=== PATIENT | female | born 1990 | race African-American/Black ===

== ENCOUNTER 2016-12-30 12:03 | Emergency (ER) | payer MEDICAID ==
--- NOTE | 2016-12-30 12:11 | ER Document Report ---
ED Medical Screen (RME) - General Chief Complaint: Nausea/Vomiting Stated Complaint: NAUSEA Mode of Arrival: Ambulatory Information source: Patient Notes: Patient presents emergency department with lower abdominal pain with vomiting for the past week. She denies fever or diarrhea. Reports last menstrual period was 5 months ago but reports she's irregular. She was nontoxic looking. I have greeted and performed a rapid initial assessment of this patient. A comprehensive ED assessment and evaluation of the patient, analysis of test results and completion of the medical decision making process will be conducted by additional ED providers. TRAVEL OUTSIDE OF THE [place] IN LAST 30 DAYS: No - Related Data Allergies/Adverse Reactions: No Known Allergies Allergy (Verified 12/30/16 12:07) Past Medical History Pulmonary Medical History: Reports: Hx Asthma - bronchitis, Hx Bronchitis, Hx Pneumonia Malignancy Medical History: Reports: Hx Lymphoma - POSSIBLE, HAS NOT FOLLOWED UP ADVISED. Psychiatric Medical History: Denies: Hx Depression Infectious Medical History: Reports: Hx HIV - POSITIVE HIV TEST ON LAST ADMISSION TO [facility], [facility] - Immunizations Immunizations up to date: No Hx Diphtheria, Pertussis, Tetanus Vaccination: Yes
[2016-12-30 12:37] LABS: APPEARANCE,URINE CLOUDY; BILIRUBIN,URINE NEGATIVE (NEGATIVE); CALCIUM OXALATE CRYSTALS,URINE FEW /HPF; GLUCOSE, URINE NEGATIVE (NEGATIVE); KETONES,URINE NEGATIVE (NEGATIVE); LEUKOCYTE ESTERASE,URINE LARGE (NEGATIVE); NITRITE,URINE NEGATIVE (NEGATIVE); PROTEIN,URINE NEGATIVE (NEGATIVE); URINE SPECIFIC GRAVITY 1.019; UROBILINOGEN,URINE NEGATIVE mg/dL (<2.0)
[2016-12-30 12:39] LABS: ABSOLUTE EOSINOPHILS # (AUTO) 0.8 10^3/uL (0.0-0.6); ABSOLUTE LYMPHOCYTES (AUTO) 2.2 10^3/uL (0.5-4.7); ABSOLUTE MONOCYTES (AUTO) 0.2 10^3/uL (0.1-1.4); ABSOLUTE NEUT (AUTO) 5.5 10^3/uL (1.7-8.2); BASOPHILS % (AUTO) 0.5 % (0-2); EOSINOPHILS % (AUTO) 8.7 % (0-6); HEMATOCRIT 38.9 % (36.0-47.0); HEMOGLOBIN 13.2 g/dL (12.0-15.5); HGB HCT DIFFERENCE 0.7; LYMPHOCYTES % (AUTO) 25.2 % (13-45); MEAN CORPUSCULAR HEMOGLOBIN 28.8 pg (27.0-33.4); MEAN CORPUSCULAR VOLUME 85 fl (80-97); MONOCYTES % (AUTO) 2.7 % (3-13); RED BLOOD COUNT 4.59 10^6/uL (3.72-5.28); RED CELL DISTRIBUTION WIDTH 13.3 % (11.5-14.0); SEGMENTED NEUTROPHILS % (AUTO) 62.9 % (42-78); WHITE BLOOD COUNT 8.7 10^3/uL (4.0-10.5)
--- NOTE | 2016-12-30 12:40 | ER Document Report ---
ED GI/ - General Chief Complaint: Nausea/Vomiting Stated Complaint: NAUSEA Mode of Arrival: Ambulatory Notes: Patient is a 26-year-old female presents emergency Department complaining of suprapubic abdominal pain and vomiting for one week. Patient states that this pain is located in the suprapubic area localized nonradiating occasional but hurts worse to palpation. Pyuria, hematuria. Last menstrual period was 2 months ago she states she is irregular. She denies being on control. She is currently sexually active. She also has associated vomiting. She denies any hematemesis or hematochezia. States she is not throwing up every day. Denies any fever, chills, diarrhea, constipation. Last bowel movement was this morning normal Past medical history significant for asthma. Denies any history or family history significant for uterine fibroids, endometriosis, ovarian cyst, ectopic Past surgical history significant for diagnostic bronchoscopy for lymphadenopathy Social history significant for social tobacco use, denies alcohol or drug use Primary care is [facility] TRAVEL OUTSIDE OF THE [place] IN LAST 30 DAYS: No - Related Data Allergies/Adverse Reactions: No Known Allergies Allergy (Verified 12/30/16 12:07) Past Medical History - General Information source: Patient - Social History Smoking Status: Never Smoker Chew tobacco use (# tins/day): No Frequency of alcohol use: None Drug Abuse: None Family History: Reviewed & Not Pertinent, Other - Mother committed suicide, no history of granulomatous lung disease in the family Patient has suicidal ideation: No Patient has homicidal ideation: No Pulmonary Medical History: Reports: Hx Asthma - bronchitis, Hx Bronchitis, Hx Pneumonia Renal/ Medical History: Denies: Hx Peritoneal Dialysis Malignancy Medical History: Reports: Hx Lymphoma - POSSIBLE, HAS NOT FOLLOWED UP ADVISED. Psychiatric Medical History: Denies: Hx Depression Infectious Medical History: Reports: Hx HIV - POSITIVE HIV TEST ON LAST ADMISSION TO [facility] - Immunizations Immunizations up to date: No Hx Diphtheria, Pertussis, Tetanus Vaccination: Yes Hx Pneumococcal Vaccination: 10/20/14 Review of Systems - Review of Systems Constitutional: No symptoms reported EENT: No symptoms reported Cardiovascular: No symptoms reported Respiratory: No symptoms reported Gastrointestinal: See HPI Genitourinary: See HPI Female Genitourinary: See HPI Musculoskeletal: No symptoms reported Skin: No symptoms reported Hematologic/Lymphatic: No symptoms reported Neurological/Psychological: No symptoms reported Physical Exam - Vital signs Vitals: Temp Pulse Resp BP Pulse Ox 98.4 F 92 16 134/85 H 98 12/30/16 12:07 12/30/16 12:07 12/30/16 12:07 12/30/16 12:07 12/30/16 12:07 - Notes Notes: PHYSICAL EXAM GENERAL: Alert, interacts well. HEAD: Normocephalic, atraumatic. EYES: Pupils equal, round, and reactive to light. Extraocular movements intact. ENT: Oral mucosa moist, tongue midline. NECK: Full range of motion. Supple. Trachea midline. LUNGS: Clear to auscultation bilaterally, no wheezes, rales, or rhonchi. No respiratory distress. HEART: Regular rate and rhythm. No murmurs, gallops, or rubs. ABDOMEN: Soft, nondistended, nontender. No guarding, rebound, or rigidity.. Bowel sounds present in all 4 quadrants. EXTREMITIES: Moves all 4 extremities spontaneously. No edema, radial and dorsalis pedis pulses 2/4 bilaterally. No cyanosis. NEUROLOGICAL: Alert and oriented x4. Normal speech. PSYCH: Normal affect, normal mood. SKIN: Warm, dry, normal turgor. No rashes or lesions noted. Course - Re-evaluation Re-evalutation: 12/30/16 15:34 Patient is a 26 year old female who presents with suprapubic abdominal pain, and intermittent vomiting. UA (+) for and UTI. I have consulted supervising physician Dr. Baron Spring who recommended TVUS. Patient sent for TVUS to evaluate for IUP and establish age. TVUS showed living IUP 8 weeks ALEXA 08/10/17. Small subchorionic hemorrhage 1x1cm , small simple cyst on right ovary. D/c home with PO antibiotcs and instruction to f/u with health department Per [facility] protocol and guidelines, this case was discussed with supervising physician Dr. Baron Spring prior to discharge - Vital Signs Vital signs: Temp Pulse Resp BP Pulse Ox 98.4 F 92 16 134/85 H 98 12/30/16 12:07 12/30/16 12:07 12/30/16 12:07 12/30/16 12:07 12/30/16 12:07 - Laboratory Result Diagrams: 12/30/16 12:15 12/30/16 12:15 Laboratory results interpreted by me: 12/30/16 12/30/16 12/30/16 12:15 12:15 12:15 Monocytes % 2.7 L Eosinophils % 8.7 H Absolute Eosinophils 0.8 H Glucose 120 H Serum HCG, Qual POSITIVE H Beta HCG, Quant Ur Leukocyte Esterase 12/30/16 12/30/16 12:15 12:20 Monocytes % Eosinophils % Absolute Eosinophils Glucose Serum HCG, Qual Beta HCG, Quant [id number] H Ur Leukocyte Esterase LARGE H - Diagnostic Test Radiology reviewed: Reports reviewed Discharge - Discharge Clinical Impression: , UTI (urinary tract infection) Condition: Good Disposition: HOME, SELF-CARE Instructions: Nitrofurantoin ([facility]) Additional Instructions: You are . care is best started as early in as possible. If you're unsure about continuing this , you should discuss this with your physician or with esl tutor at [facility]. You should take only medications approved by your physician. Acetaminophen can safely be taken for minor pains. As a rule, medication for chronic conditions such as asthma or seizures can safely be continued. You should discuss with the physician every medicine you take. Any regular exercise program can be continued. Talk to your physician, however, before engaging in competitive or demanding sports. Alcohol, smoking, and "street drugs" are dangerous to your baby. Cocaine is especially dangerous. Don't use any illicit drugs! URINARY TRACT INFECTION: Your evaluation indicates that you have a urinary tract infection. This is due to germs growing in the bladder. This is a common problem. This infection usually responds quickly to antibiotics. Your antibiotic should be taken exactly as prescribed. Drink plenty of fluids -- three to four quarts a day. Occasionally, a bladder anesthetic will be prescribed to help stop the feeling of urgency until the antibiotic has a chance to clear the infection. This may cause your urine to be dark orange. Certain urine infections require a culture. If the doctor obtained a culture, the results will be back in two days. You should call to see if a change in treatment is needed. A repeat urinalysis after you finish treatment is often recommended. The physician will let you know if further testing is required. Call the doctor if you develop fever, chills, flank pain, inability to urinate, or blood in the urine. ANTIBIOTIC THERAPY: You have been given an antibiotic prescription. It's important that you take all the medication, unless instructed otherwise by your physician. Failure to complete the entire course can result in relapse of your condition. Common side effects of antibiotics include nausea, intestinal cramping, or diarrhea. Women may develop vaginal yeast infections, and babies can get yeast (thrush) in the mouth following the use of antibiotics. Contact your physician if you develop significant side effects from this medication. Allergy to this antibiotic can result in hives, wheezing, faintness, or itching. If symptoms of allergy occur, stop the medication and call the doctor. NITROFURANTOIN (MACRODANTIN, MACROBID): You have received a prescription for nitrofurantoin (Macrodantin). This antibiotic is used for urinary tract infections. Women who are or nursing should notify the physician before taking this medicine. If you have ever had a problem caused by this medication in the past, be sure the physician is aware of it. Common side effects of this medicine include nausea, vomiting, or decreased appetite. Notify your physician if these side effects become severe. Immediately stop this medicine and call the physician if you develop cough , shortness of breath, chest pain, weakness, jaundice (yellow color of the skin and whites of the eyes), or a skin rash. FOLLOW-UP CARE: If you have been referred to a physician for follow-up care, call the physician s office for an appointment as you were instructed or within the next two days. If you experience worsening or a significant change in your symptoms, notify the physician immediately or return to the Emergency Department at any time for re-evaluation. Prescriptions: Nitrofurantoin/Nitrofuran Mac [Macrobid 100 mg Capsule] 1 tab PO BID #20 capsule Forms: Elevated Blood Pressure, Smoking Cessation Education Referrals: ABBEY PUGA MD [Primary Care Provider] - Follow up as needed
[2016-12-30 12:57] LABS: ALANINE AMINOTRANSFERASE 18 U/L (9-52); ALBUMIN 3.9 g/dL (3.5-5.0); ALKALINE PHOSPHATASE 63 U/L (38-126); ANION GAP 11 (5-19); ASPARTATE AMINO TRANSFERASE 18 U/L (14-36); BILIRUBIN,TOTAL 0.5 mg/dL (0.2-1.3); BLOOD UREA NITROGEN 7 mg/dL (7-20); CALCIUM 9.8 mg/dL (8.4-10.2); CARBON DIOXIDE 23 mmol/L (22-30); CHLORIDE 104 mmol/L (98-107); CREATININE RESULT 0.55 mg/dL (0.52-1.25); GLUCOSE 120 mg/dL (75-110); POTASSIUM 3.8 mmol/L (3.6-5.0); TOTAL PROTEIN 6.8 g/dL (6.3-8.2)
[2016-12-30 16:40] VITALS: BP 128/69
== END 2016-12-30 16:25 | disposition home or self-care (01) ==
LOC: ER 12:03
DX: O23.41 Unspecified infection of urinary tract in pregnancy, first trimester (principal); R10.30 Lower abdominal pain, unspecified; Z3A.08 8 weeks gestation of pregnancy; J45.909 Unspecified asthma, uncomplicated; Z21 Asymptomatic human immunodeficiency virus [HIV] infection status
CPT/HCPCS: 36415; 76817; 80053; 81001; 84702; 84703; 85025; 93976; 99284

== ENCOUNTER 2017-02-12 16:34 | Emergency (ER) | payer MEDICAID ==
[2017-02-12] MEDS ORDERED: ONDANSETRON 4 MG TAB.RAPDIS PO ONE (17:22)
--- NOTE | 2017-02-12 17:25 | ER Document Report ---
ED Medical Screen (RME) - General Chief Complaint: Abdominal Pain Stated Complaint: STOMACH PAIN Mode of Arrival: Ambulatory Information source: Patient Notes: This is a 26-year-old female at 14+3 weeks gestation who presents with lower abdominal pain worse on the right. She states that the pain began on Friday which was 3 days ago and has been associated with vomiting. She has been having difficulty tolerating by mouth. She did have breakfast this morning which was grits. She denies any fevers or chills. No dysuria. Of note she was seen here 6 weeks ago and diagnosed with an 8 week intrauterine and ultrasound showed a small subchorionic bleed. She denies any vaginal bleeding. She has not initiated her care yet. She states her right lower quadrant pain is worse with movement and ambulation. I have greeted and performed a rapid initial assessment of this patient. A comprehensive ED assessment and evaluation of the patient, analysis of test results and completion of the medical decision making process will be conducted by additional ED providers. TRAVEL OUTSIDE OF THE [place] IN LAST 30 DAYS: No - Related Data Allergies/Adverse Reactions: No Known Allergies Allergy (Verified 12/30/16 12:07) Past Medical History Pulmonary Medical History: Reports: Hx Asthma - bronchitis, Hx Bronchitis, Hx Pneumonia Renal/ Medical History: Denies: Hx Peritoneal Dialysis Malignancy Medical History: Reports: Hx Lymphoma - POSSIBLE, HAS NOT FOLLOWED UP ADVISED. Psychiatric Medical History: Denies: Hx Depression Infectious Medical History: Reports: Hx HIV - POSITIVE HIV TEST [facility] - Immunizations Immunizations up to date: No Hx Diphtheria, Pertussis, Tetanus Vaccination: Yes Physical Exam - Vital signs Vitals: Temp Pulse Resp BP Pulse Ox 98.4 F 89 16 105/68 98 02/12/17 16:38 02/12/17 16:38 02/12/17 16:38 02/12/17 16:38 02/12/17 16:38 Course - Vital Signs Vital signs: Temp Pulse Resp BP Pulse Ox 98.4 F 89 16 105/68 98 02/12/17 16:38 02/12/17 16:38 02/12/17 16:38 02/12/17 16:38 02/12/17 16:38 - Laboratory Result Diagrams: 02/12/17 17:25 02/12/17 17:25 Laboratory results interpreted by me: 02/12/17 02/12/17 02/12/17 17:25 17:25 17:25 Eosinophils % 8.8 H Absolute Eosinophils 0.9 H BUN 6 L Ur Leukocyte Esterase LARGE H
[2017-02-12 17:49] LABS: ABSOLUTE BASOPHILS # (AUTO) 0.1 10^3/uL (0.0-0.2); ABSOLUTE EOSINOPHILS # (AUTO) 0.9 10^3/uL (0.0-0.6); ABSOLUTE MONOCYTES (AUTO) 0.6 10^3/uL (0.1-1.4); ABSOLUTE NEUT (AUTO) 5.6 10^3/uL (1.7-8.2); BASOPHILS % (AUTO) 1.3 % (0-2); EOSINOPHILS % (AUTO) 8.8 % (0-6); HEMATOCRIT 37.1 % (36.0-47.0); HGB HCT DIFFERENCE 1.9; LYMPHOCYTES % (AUTO) 28.9 % (13-45); MEAN CORPUSCULAR HEMOGLOBIN 29.1 pg (27.0-33.4); MEAN CORPUSCULAR VOLUME 83 fl (80-97); MONOCYTES % (AUTO) 6.2 % (3-13); RED BLOOD COUNT 4.46 10^6/uL (3.72-5.28); RED CELL DISTRIBUTION WIDTH 12.7 % (11.5-14.0); SEGMENTED NEUTROPHILS % (AUTO) 54.8 % (42-78); WHITE BLOOD COUNT 10.3 10^3/uL (4.0-10.5)
[2017-02-12 17:58] LABS: APPEARANCE,URINE SLIGHTLY-CLOUDY; BILIRUBIN,URINE NEGATIVE (NEGATIVE); GLUCOSE, URINE NEGATIVE (NEGATIVE); KETONES,URINE NEGATIVE (NEGATIVE); LEUKOCYTE ESTERASE,URINE LARGE (NEGATIVE); NITRITE,URINE NEGATIVE (NEGATIVE); PROTEIN,URINE NEGATIVE (NEGATIVE); UROBILINOGEN,URINE NEGATIVE mg/dL (<2.0)
[2017-02-12 18:11] LABS: ALANINE AMINOTRANSFERASE 16 U/L (9-52); ALBUMIN 3.9 g/dL (3.5-5.0); ALKALINE PHOSPHATASE 62 U/L (38-126); ANION GAP 15 (5-19); ASPARTATE AMINO TRANSFERASE 21 U/L (14-36); BILIRUBIN,DIRECT 0.3 mg/dL (0.0-0.4); BILIRUBIN,TOTAL 0.4 mg/dL (0.2-1.3); BLOOD UREA NITROGEN 6 mg/dL (7-20); CALCIUM 9.8 mg/dL (8.4-10.2); CARBON DIOXIDE 22 mmol/L (22-30); CHLORIDE 101 mmol/L (98-107); CREATININE RESULT 0.55 mg/dL (0.52-1.25); GLUCOSE 84 mg/dL (75-110); SODIUM 138.2 mmol/L (137-145)
--- NOTE | 2017-02-12 19:46 | ER Document Report ---
ED GI/ - General Chief Complaint: Abdominal Pain Stated Complaint: STOMACH PAIN Time seen by provider: 19:35 Mode of Arrival: Ambulatory Notes: Patient is a 26-year-old female, at 14 weeks gestation by first trimester ultrasound, that comes emergency department for chief complaint of 3 days of lower abdominal pain, intermittent, she states she notices it more on the right side than the left, she states yesterday she vomited, did not vomit today, she denies fever. She denies dysuria, vaginal discharge or bleeding, injury. She has not had any evaluation other than in the emergency department for this . Patient states that she has not had a bowel movement in 1 week, states this is actually close to normal for her, states she usually has hard bowel movements. Patient reports past medical history of asthma, denies any other medical history. She smokes. TRAVEL OUTSIDE OF THE [place] IN LAST 30 DAYS: No - Related Data Allergies/Adverse Reactions: No Known Allergies Allergy (Verified 12/30/16 12:07) Past Medical History - General Information source: Patient - Social History Smoking Status: Current Every Day Smoker Smoking Education Provided: Yes - <3 min Frequency of alcohol use: None Drug Abuse: None Lives with: Family Family History: Reviewed & Not Pertinent, Other - Mother committed suicide, no history of granulomatous lung disease in the family Pulmonary Medical History: Reports: Hx Asthma - bronchitis, Hx Bronchitis, Hx Pneumonia Renal/ Medical History: Denies: Hx Peritoneal Dialysis Malignancy Medical History: Reports: Hx Lymphoma - POSSIBLE, HAS NOT FOLLOWED UP ADVISED. Psychiatric Medical History: Denies: Hx Depression Surgical Hx: Negative - Immunizations Immunizations up to date: No Hx Diphtheria, Pertussis, Tetanus Vaccination: Yes Hx Pneumococcal Vaccination: 10/20/14 Review of Systems - Review of Systems Constitutional: No symptoms reported EENT: No symptoms reported Cardiovascular: No symptoms reported Respiratory: No symptoms reported Gastrointestinal: See HPI Genitourinary: See HPI Female Genitourinary: See HPI Musculoskeletal: No symptoms reported Skin: No symptoms reported Hematologic/Lymphatic: No symptoms reported Neurological/Psychological: No symptoms reported Physical Exam - Vital signs Vitals: Temp Pulse Resp BP Pulse Ox 98.4 F 89 16 105/68 98 02/12/17 16:38 02/12/17 16:38 02/12/17 16:38 02/12/17 16:38 02/12/17 16:38 Interpretation: Normal - General General appearance: Appears well, Alert In distress: None - Patient alert, calm, very well-appearing - HEENT Head: Normocephalic, Atraumatic Eyes: Normal Conjunctiva: Normal Extraocular movements intact: Yes Eyelashes: Normal Pupils: PERRL Sinus: Normal Nasal: Normal Mouth/Lips: Normal Mucous membranes: Normal Pharynx: Normal Neck: Normal - Respiratory Respiratory status: No respiratory distress. No: Labored, Tachypnea Chest status: Nontender Breath sounds: Other - No tachypnea or signs of respiratory distress, however patient does have a few mild scattered wheezes with otherwise normal and clear lung sounds Chest palpation: Normal - Cardiovascular Rhythm: Regular. No: Tachycardia Heart sounds: Normal auscultation, S1 appreciated, S2 appreciated Murmur: No - Abdominal Inspection: Normal Distension: No distension Bowel sounds: Normal Tenderness: Tender - Mild generalized lower abdominal tenderness bilaterally, no guarding, no rebound tenderness, no distention, otherwise normal abdominal exam Organomegaly: No organomegaly - Genitourinary External exam: Normal Speculum exam: Normal, Cervix closed, Vaginal discharge - Minimal whitish discharge Vaginal bleeding: None - Back Back: Normal, Nontender. No: Tender - Extremities General upper extremity: Normal inspection, Nontender, Normal color, Normal ROM , Normal temperature General lower extremity: Normal inspection, Nontender, Normal color, Normal ROM , Normal temperature, Normal weight bearing. No: Rosaura's sign - Neurological Neuro grossly intact: Yes Cognition: Normal Orientation: AAOx4 [place] Coma Scale Eye Opening: Spontaneous [place] Coma Scale Verbal: Oriented [place] Coma Scale Motor: Obeys Commands Blu Coma Scale Total: 15 Speech: Normal Motor strength normal: LUE, RUE, LLE, RLE Sensory: Normal - Psychological Associated symptoms: Normal affect, Normal mood - Skin Skin Temperature: Warm Skin Moisture: Dry Skin Color: Normal Course - Re-evaluation Re-evalutation: Mild lower abdominal tenderness, not suggestive of acute abdomen. CBC unremarkable, chemistry unremarkable, urinalysis with leukocyte esterase and white blood cells. Pelvic exam is unremarkable. heart tones present. No vaginal bleeding, cervix closed. Patient has not had a bowel movement in one week. Providing stool softeners, Keflex antibiotic for UTI, discussed smoking cessation due to both the harm to her and on the potentially, discussed vitamin use, patient states she has vitamins but she is currently taking. She states she'll start taking them and stop smoking. Discussed follow-up and return precautions, patient states understanding and agreement, significant other states understanding and agreement. - Vital Signs Vital signs: Temp Pulse Resp BP Pulse Ox 97.3 F 88 17 121/74 100 02/12/17 22:05 02/12/17 22:05 02/12/17 22:05 02/12/17 22:05 02/12/17 22:05 - Laboratory Result Diagrams: 02/12/17 17:25 02/12/17 17:25 Laboratory results interpreted by me: 02/12/17 02/12/17 02/12/17 17:25 17:25 17:25 Eosinophils % 8.8 H Absolute Eosinophils 0.9 H BUN 6 L Ur Leukocyte Esterase LARGE H Discharge - Discharge Clinical Impression: Lower abdominal pain Condition: Stable Disposition: HOME, SELF-CARE Additional Instructions: Take the Keflex antibiotic as prescribed for urinary tract infection. I recommend using the magnesium citrate (you may want to try only 1/4 to 1/2 of the bottle initially), and use the Colace in the future if needed intermittently for stool softener to move your bowels and prevent constipation. Take your vitamins, stop smoking. Follow-up with the health department/OBGYN. Return to the emergency department for any concerning or worsening symptoms including fever, bleeding, pain, etc. Prescriptions: Cephalexin Monohydrate [Keflex 500 mg Capsule] 500 mg PO BID #10 capsule Docusate Sodium [Colace 100 mg Capsule] 100 mg PO DAILY #30 capsule Forms: Return to Work
[2017-02-12] MEDS ORDERED: CEPHALEXIN 500 MG CAPSULE PO ONE (21:29)
[2017-02-12] MEDS ORDERED: MAGNESIUM CITRATE 296 ML BOTTLE PO ONE (21:29)
[2017-02-12 22:04] LABS: CHLAM PCR NOT DETECTED (NOT DETECT)
[2017-02-12 22:59] VITALS: BP 121/74
== END 2017-02-12 22:05 | disposition home or self-care (01) ==
LOC: ER 16:34
DX: O16.2 Unspecified maternal hypertension, second trimester (principal); R10.30 Lower abdominal pain, unspecified; O99.332 Smoking (tobacco) complicating pregnancy, second trimester; Z3A.14 14 weeks gestation of pregnancy
CPT/HCPCS: 99284; 36415; 87210; 85025; 80053; 81001; 87491; 87591; J3490; S0119

== ENCOUNTER 2017-05-18 21:55 | Inpatient (IN) | payer MEDICAID ==
[2017-05-18 23:23] LABS: AMNISURE (ROM) NEGATIVE (NEGATIVE)
[2017-05-18] MEDS ORDERED: ALBUTEROL SULFATE 0.083% NEB 2.5 MG/3 ML AMPUL NEB ONE (23:35)
[2017-05-18 23:47] LABS: APPEARANCE,URINE CLOUDY; BILIRUBIN,URINE NEGATIVE (NEGATIVE); GLUCOSE, URINE NEGATIVE (NEGATIVE); KETONES,URINE TRACE mg/dL (NEGATIVE); LEUKOCYTE ESTERASE,URINE MODERATE (NEGATIVE); NITRITE,URINE NEGATIVE (NEGATIVE); PROTEIN,URINE 30 mg/dL (NEGATIVE); URINE SPECIFIC GRAVITY 1.016
[2017-05-19] MEDS ORDERED: RINGERS SOLUTION,LACTATED 1,000 ML IV PRN
[2017-05-19] MEDS ORDERED: CEFAZOLIN 2 GM/D5W RTU 2 GM/50 ML RTUPB IV PRN
[2017-05-19 00:02] LABS: URINE BARBITURATES SCREEN NEGATIVE; URINE METHADONE SCREEN NEGATIVE; URINE OPIATES LOW NEGATIVE; URINE PHENCYCLIDINE SCREEN NEGATIVE
[2017-05-19] MEDS ORDERED: CEFAZOLIN INJ 1 GM VIAL ONE (00:04)
[2017-05-19] MEDS ORDERED: ALBUTEROL SULFATE 0.083% NEB 2.5 MG/3 ML AMPUL NEB ONE (00:12)
[2017-05-19] MEDS ORDERED: CYCLOBENZAPRINE HCL 10 MG TABLET ONE (01:34)
[2017-05-19] MEDS ORDERED: CYCLOBENZAPRINE HCL 10 MG TABLET PO ONE (01:45)
[2017-05-19] MEDS ORDERED: HYDROMORPHONE HCL INJ/PF 2 MG/ML AMPULE ONE ×2 (02:21→08:10)
[2017-05-19 02:28] LABS: ABSOLUTE BASOPHILS # (AUTO) 0.1 10^3/uL (0.0-0.2); ABSOLUTE EOSINOPHILS # (AUTO) 0.2 10^3/uL (0.0-0.6); ABSOLUTE LYMPHOCYTES (AUTO) 1.7 10^3/uL (0.5-4.7); ABSOLUTE MONOCYTES (AUTO) 1.1 10^3/uL (0.1-1.4); ABSOLUTE NEUT (AUTO) 11.6 10^3/uL (1.7-8.2); BASOPHILS % (AUTO) 0.4 % (0-2); EOSINOPHILS % (AUTO) 1.2 % (0-6); HEMATOCRIT 34.6 % (36.0-47.0); HEMOGLOBIN 12.2 g/dL (12.0-15.5); LYMPHOCYTES % (AUTO) 11.4 % (13-45); MEAN CORPUSCULAR HEMOGLOBIN 29.7 pg (27.0-33.4); MEAN CORPUSCULAR HGB CONC 35.1 g/dL (32.0-36.0); MEAN CORPUSCULAR VOLUME 85 fl (80-97); MONOCYTES % (AUTO) 7.3 % (3-13); RED BLOOD COUNT 4.09 10^6/uL (3.72-5.28); RED CELL DISTRIBUTION WIDTH 13.3 % (11.5-14.0); SEGMENTED NEUTROPHILS % (AUTO) 79.7 % (42-78); WHITE BLOOD COUNT 14.6 10^3/uL (4.0-10.5)
--- NOTE | 2017-05-19 03:48 | RADIOLOGY REPORT (SQ) ---
EXAM DESCRIPTION: CTA CHEST COMPLETED DATE/TIME: 05/19/2017 3:12 am REASON FOR STUDY: chest/upper back pain, wheezing COMPARISON: 10.07.16 TECHNIQUE: CT scan of the chest performed using helical scanning technique with dynamic intravenous contrast injection. Images reviewed with lung, soft tissue and bone windows. Reconstructed coronal and sagittal MPR images reviewed. Additional 3 dimensional post-processing performed to develop Maximal Intensity Projection images (IA P). All images stored on PACS. All CT scanners at this facility use dose modulation, iterative reconstruction, and/or weight based d osing when appropriate to reduce radiation dose to as low as reasonably achievable (ALARA). [facility]: Dose Right [facility]: CareDose [facility]: Dose Right [facility]: Teradose 4D [facility]: Fitocracy CONTRAST TYPE AND DOSE: contrast/concentration: Isovue 370.00 mg/ml; Total Contrast Delivered: 80.0 ml; Total Saline Delivered: 110.0 ml RENAL FUNCTION: None required. The patient is less than 50 years old. RADIATION DOSE: Up-to-date CT equipment and radiation dose reduction techniques were employed. CTDIv ol: 26.4 - 32.4 mGy. DLP: 1030 mGy-cm. . LIMITATIONS: None. FINDINGS: LUNGS AND PLEURA: Evolved masslike airspace lesions includes increased soft tissue mass me asuring 3.7 cm and the left upper lobe, 3.9 cm increased soft tissue mass of the right upper lobe, in creased extensive left perihilar and perivascular arm soft tissue mass, and nodular serpiginous enlar gement of the venous system of predominantly bilateral lower lobes. Significantly decreased/absent p reviously described 4.6 cm mass of the right lower lobe as compared to CT from September 2016. AORTA AND GREAT VESSELS: No aneurysm or dissection. HEART: No pericardial effusion. PULMONARY ARTERIES: No gross evidence of pulmonary emboli visualized in the main pulmonary arteries o r the segmental branches ; suboptimal pulmonary arterial enhancement measures 150 Hounsfield units. HILAR AND MEDIASTINAL STRUCTURES: No identified masses or abnormal nodes. HARDWARE: None in the chest. UPPER ABDOMEN: No significant findings. Limited exam. THYROID AND OTHER SOFT TISSUES: No masses. No adenopathy. BONES: No acute or significant finding. 3D MIPS: Confirm above findings. OTHER: No other significant finding. IMPRESSION: Increased pulmonary masses particularly of bilateral upper lobes and left perihilar spac e. Nonspecific nodular enlargement of the pulmonary venous system seen in bilateral lower lobes. In fectious, inflammatory, vascular and neoplastic processes are in the differential diagnosis. Consult ation with pulmonary medicine recommended. TECHNICAL DOCUMENTATION: JOB ID: [id number] Quality ID # [id number]: Final reports with documentation of one or more dose reduction techniques (e.g., Au tomated exposure control, adjustment of the mA and/or kV according to patient size, use of iterative reconstruction technique) 2010 [email or web address]- All Rights Reserved
[2017-05-19] MEDS ORDERED: DEXTROSE 5%-LACTATED RINGERS 1,000 ML IV PRN (05:03)
--- NOTE | 2017-05-19 07:28 | L&D Progress Notes ---
PROGRESS NOTES Datetime Report Generated by CPN: 05/19/2017 07:27 PROGRESS NOTE Impression Other: Transfer summary Plan: Transfer Comment: IUP at 28 wks with pulmonary nodules on CTA. Case d/w Dr Mariya of pulmonary who did bronchoscopy in Sep 2016 on her. Biopsies showed inflammatin and necrotic tissue. Pt did not f/u as recommended. He feels she needs tertiary care eval and tx. Contacted [facility] and Dr Hastings accepts pt in transfer to L and D neg flow room. SIGNATURE SIGNATURE: [id number] Signature: with User ID: [email or web address]
[2017-05-19] MEDS ORDERED: HYDROMORPHONE HCL INJ/PF 2 MG/ML AMPULE IV ONE (08:04)
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
--- NOTE | 2017-05-29 12:27 | TRANSFER SUMMARY E ---
Transfer Summary NAME: ZEB PEACOCK : 1990 AGE: 26Y ADMITTED: 05/19/2017 TRANSFERRED: 05/19/2017 HOSPITAL COURSE: The patient is a 26-year-old G2, P1 who presented at 28+ weeks gestation with chest pain and shortness of breath. She had wheezing on exam and was given an albuterol neb. She underwent chest CTA which showed multiple pulmonary masses. In the past she had bronchoscopy with Dr. Meraz which was nondefinitive. She did not follow up. The decision was made that she was not a good candidate for workup and treatment at [facility] and [facility] was contacted. Dr. Hastings on Labor and Delivery at [facility] accepted her in transfer. During the course of her stay, she did receive 2 g of Ancef for a suspected UTI. There were no other transfers meds given. The testing was reassuring during her hospital course. The patient was simply sent on IV fluids and Dilaudid for pain. DICTATING PHYSICIAN: PRIYANKA NAIK M.D. [id number] PHY#: [id number] ID: [id number] JOB#: [id number] ACCT: [id number] cc:PRIYANKA NAIK M.D. >
== END 2017-05-19 09:48 | disposition short-term general hospital (02) | DRG 781 ==
LOC: EDSTATUS 22:35 → LC 22:37 → LR 05-19 05:04
PROVIDERS: ADMIT Specialist; ATTEND Specialist
DX: O99.513 Diseases of the respiratory system complicating pregnancy, third trimester (principal); R91.8 Other nonspecific abnormal finding of lung field; J45.909 Unspecified asthma, uncomplicated; Z3A.28 28 weeks gestation of pregnancy; R07.89 Other chest pain; O23.43 Unspecified infection of urinary tract in pregnancy, third trimester
CPT/HCPCS: 36415; 71275; 80307; 81001; 84112; 85025; 87086; 94640; J0690; J1170

== ENCOUNTER 2017-06-23 22:49 | Outpatient (CLI) | payer MEDICAID ==
[2017-06-23 23:22] LABS: APPEARANCE,URINE SLIGHTLY-CLOUDY; BILIRUBIN,URINE NEGATIVE (NEGATIVE); GLUCOSE, URINE NEGATIVE (NEGATIVE); KETONES,URINE NEGATIVE (NEGATIVE); LEUKOCYTE ESTERASE,URINE MODERATE (NEGATIVE); NITRITE,URINE NEGATIVE (NEGATIVE); PROTEIN,URINE 100 mg/dL (NEGATIVE); URINE SPECIFIC GRAVITY 1.023; UROBILINOGEN,URINE NEGATIVE mg/dL (<2.0)
[2017-06-23 23:34] LABS: URINE BARBITURATES SCREEN NEGATIVE; URINE METHADONE SCREEN NEGATIVE; URINE OPIATES LOW NEGATIVE; URINE PHENCYCLIDINE SCREEN NEGATIVE
[2017-06-24] MEDS ORDERED: PROMETHAZINE HCL 25 MG TABLET ONE (02:05)
--- NOTE | 2017-06-24 02:28 | RADIOLOGY REPORT (SQ) ---
EXAM DESCRIPTION: U/S OB LIMITED COMPLETED DATE/TIME: 06/24/2017 12:28 am REASON FOR STUDY: R/O PTL: cervical length . The patient is 33 weeks 2 days . COMPARISON: US OB 12/30/2016. TECHNIQUE: Limited transvaginal and transabdominal grayscale ultrasound for evaluation of specific r equested obstetrical parameters. LIMITATIONS: None. FINDINGS: CERVICAL LENGTH: 4.8 cm. Closed. FHR: 132 beats per minute. PRESENTATION: Vertex. IMPRESSION: LIMITED OBSTETRICAL ULTRASOUND WITH MEASURED PARAMETERS DELINEATED ABOVE. Trimester of : Third trimester - 28 weeks to delivery. TECHNICAL DOCUMENTATION: JOB ID: [id number] 2010 [employer] All Rights Reserved
== END 2017-06-24 03:11 | disposition home or self-care (01) ==
LOC: LC 22:49
PROVIDERS: ATTEND Student in an Organized Health Care Education/Training Program
PROC: 4A1HXCZ Monitoring of Products of Conception, Cardiac Rate, External Approach (ICD-10-PCS; principal; 2017-06-23)
DX: O47.03 False labor before 37 completed weeks of gestation, third trimester (principal); Z3A.33 33 weeks gestation of pregnancy
CPT/HCPCS: 59025; 81001; 80307; 76815; J3490

== ENCOUNTER 2018-02-16 09:27 | Emergency (ER) | payer SELFPAY ==
[2018-02-16 10:17] LABS: ABSOLUTE BASOPHILS # (AUTO) 0.1 10^3/uL (0.0-0.2); ABSOLUTE EOSINOPHILS # (AUTO) 0.6 10^3/uL (0.0-0.6); ABSOLUTE LYMPHOCYTES (AUTO) 2.4 10^3/uL (0.5-4.7); ABSOLUTE MONOCYTES (AUTO) 0.2 10^3/uL (0.1-1.4); ABSOLUTE NEUT (AUTO) 3.6 10^3/uL (1.7-8.2); BASOPHILS % (AUTO) 1.1 % (0-2); EOSINOPHILS % (AUTO) 8.3 % (0-6); HEMATOCRIT 39.3 % (36.0-47.0); HEMOGLOBIN 13.4 g/dL (12.0-15.5); LYMPHOCYTES % (AUTO) 35.8 % (13-45); MEAN CORPUSCULAR HEMOGLOBIN 28.7 pg (27.0-33.4); MEAN CORPUSCULAR HGB CONC 34.1 g/dL (32.0-36.0); MEAN CORPUSCULAR VOLUME 84 fl (80-97); MONOCYTES % (AUTO) 2.3 % (3-13); PLATELET COUNT 277 10^3/uL (150-450); RED BLOOD COUNT 4.68 10^6/uL (3.72-5.28); RED CELL DISTRIBUTION WIDTH 13.6 % (11.5-14.0); SEGMENTED NEUTROPHILS % (AUTO) 52.5 % (42-78); TOTAL CELLS COUNTED % (AUTO) 100 %; WHITE BLOOD COUNT 6.8 10^3/uL (4.0-10.5)
[2018-02-16 10:21] LABS: APPEARANCE,URINE CLOUDY; BILIRUBIN,URINE NEGATIVE (NEGATIVE); COLOR,URINE YELLOW; GLUCOSE, URINE NEGATIVE (NEGATIVE); KETONES,URINE NEGATIVE (NEGATIVE); LEUKOCYTE ESTERASE,URINE LARGE (NEGATIVE); NITRITE,URINE NEGATIVE (NEGATIVE); PROTEIN,URINE 30 mg/dL (NEGATIVE); URINE SPECIFIC GRAVITY 1.023; UROBILINOGEN,URINE NEGATIVE mg/dL (<2.0)
--- NOTE | 2018-02-16 10:27 | ER Document Report ---
ED General - General Chief Complaint: Abdominal Pain Stated Complaint: WHEEZING, STOMACH PAIN Time Seen by Provider: 02/16/18 10:07 Mode of Arrival: Ambulatory Information source: Patient Notes: 27-year-old female presents with 2 separate complaints. Patient has a history of asthma notes that since she lost her Medicaid she has not been on any vacations does not have alar. Patient denies any fevers or chills admits to wheezing over the past 3-4 days. Patient also notes that she has had unprotected intercourse believe she may be as having foul-smelling urine, patient also notes that there is some bumps couple weeks ago that since healed. pt admits ot suprapubic pain over the past few days, notes burning on urination TRAVEL OUTSIDE OF THE [place].S. IN LAST 30 DAYS: No - HPI Onset: Other Onset/Duration: Persistent Quality of pain: Burning, Pressure Severity: Mild Pain Level: 1 Associated symptoms: Nonproductive cough, Shortness of breath, Other Exacerbated by: Walking, Coughing, Other - urination Relieved by: Denies Similar symptoms previously: Yes Recently seen / treated by doctor: Yes - Related Data Allergies/Adverse Reactions: No Known Allergies Allergy (Verified 02/16/18 09:41) Past Medical History - Social History Smoking Status: Current Every Day Smoker Cigarette use (# per day): Yes Chew tobacco use (# tins/day): No Smoking Education Provided: No Frequency of alcohol use: None Drug Abuse: None Family History: Reviewed & Not Pertinent, Other - Mother committed suicide, no history of granulomatous lung disease in the family Patient has suicidal ideation: No Patient has homicidal ideation: No Pulmonary Medical History: Reports: Hx Asthma - bronchitis, Hx Bronchitis, Hx Pneumonia Renal/ Medical History: Denies: Hx Peritoneal Dialysis Malignancy Medical History: Reports: Hx Lymphoma - POSSIBLE, HAS NOT FOLLOWED UP ADVISED. Psychiatric Medical History: Denies: Hx Depression Infectious Medical History: Reports: Hx HIV - POSITIVE HIV TEST [facility] - Immunizations Immunizations up to date: No Hx Diphtheria, Pertussis, Tetanus Vaccination: Yes Hx Pneumococcal Vaccination: 10/20/14 Review of Systems - Review of Systems Notes: REVIEW OF SYSTEMS: CONSTITUTIONAL : Denies fever, chills, or sweats. Denies recent illness. EENT: Denies eye, ear, throat, or mouth pain or symptoms. Denies nasal or sinus congestion or discharge. Denies throat, tongue, or mouth swelling or difficulty swallowing. CARDIOVASCULAR: Denies chest pain. Denies palpitations or racing or irregular heart beat. Denies ankle edema. RESPIRATORY: Admits to wheezing GASTROINTESTINAL: Admits to suprapubic GENITOURINARY: Admits to burning on urination FEMALE GENITOURINARY: Denies vaginal bleeding, heavy or abnormal periods, irregular periods. Denies vaginal discharge or odor. MUSCULOSKELETAL: Denies back or neck pain or stiffness. Denies joint pain or swelling. SKIN: Denies rash, lesions or sores. HEMATOLOGIC : Denies easy bruising or bleeding. LYMPHATIC: Denies swollen, enlarged glands. NEUROLOGICAL: Denies confusion or altered mental status. Denies passing out or loss of consciousness. Denies dizziness or lightheadedness. Denies headache. Denies weakness or paralysis or loss of use of either side. Denies problems with gait or speech. Denies sensory loss, numbness, or tingling. Denies seizures. PSYCHIATRIC: Denies anxiety or stress. Denies depression, suicidal ideation, or homicidal ideation. ALL OTHER SYSTEMS REVIEWED AND NEGATIVE. PHYSICAL EXAMINATION: GENERAL: Well-appearing, well-nourished and in no acute distress. HEAD: Atraumatic, normocephalic. EYES: Pupils equal round and reactive to light, extraocular movements intact, conjunctiva are normal. ENT: Nares patent, oropharynx clear without exudates. Moist mucous membranes. NECK: Normal range of motion, supple without lymphadenopathy LUNGS: Breath sounds clear to auscultation bilaterally and equal. No wheezes rales or rhonchi. HEART: Regular rate and rhythm without murmurs ABDOMEN: Soft, nontender, nondistended abdomen. No guarding, no rebound. No masses appreciated. No tenderness upon palpation Female : Pelvic examination performed with [employer]ki in the room, white discharge is noted no cervical tenderness Musculoskeletal: Normal range of motion, no pitting or edema. No cyanosis. NEUROLOGICAL: Cranial nerves grossly intact. Normal speech, normal gait. Normal sensory, motor exams PSYCH: Normal mood, normal affect. SKIN: Warm, Dry, normal turgor, no rashes or lesions noted. Dictation was performed using [employer] voice recognition software Physical Exam - Vital signs Vitals: Temp Pulse Resp BP Pulse Ox 98.3 F 99 18 130/77 H 96 02/16/18 09:35 02/16/18 09:35 02/16/18 09:35 02/16/18 09:35 02/16/18 09:35 REVIEW OF SYSTEMS: CONSTITUTIONAL : Denies fever, chills, or sweats. Denies recent illness. EENT: Denies eye, ear, throat, or mouth pain or symptoms. Denies nasal or sinus congestion or discharge. Denies throat, tongue, or mouth swelling or difficulty swallowing. CARDIOVASCULAR: Denies chest pain. Denies palpitations or racing or irregular heart beat. Denies ankle edema. RESPIRATORY: Admits cough wheezing GASTROINTESTINAL: Admits suprapubic pain GENITOURINARY: Admits to burning on urination FEMALE GENITOURINARY: Denies vaginal bleeding, heavy or abnormal periods, irregular periods. Denies vaginal discharge or odor. MUSCULOSKELETAL: Denies back or neck pain or stiffness. Denies joint pain or swelling. SKIN: Denies rash, lesions or sores. HEMATOLOGIC : Denies easy bruising or bleeding. LYMPHATIC: Denies swollen, enlarged glands. NEUROLOGICAL: Denies confusion or altered mental status. Denies passing out or loss of consciousness. Denies dizziness or lightheadedness. Denies headache. Denies weakness or paralysis or loss of use of either side. Denies problems with gait or speech. Denies sensory loss, numbness, or tingling. Denies seizures. PSYCHIATRIC: Denies anxiety or stress. Denies depression, suicidal ideation, or homicidal ideation. ALL OTHER SYSTEMS REVIEWED AND NEGATIVE. PHYSICAL EXAMINATION: GENERAL: Well-appearing, well-nourished and in no acute distress. HEAD: Atraumatic, normocephalic. EYES: Pupils equal round and reactive to light, extraocular movements intact, conjunctiva are normal. ENT: Nares patent, oropharynx clear without exudates. Moist mucous membranes. NECK: Normal range of motion, supple without lymphadenopathy LUNGS: Breath sounds clear to auscultation bilaterally and equal. No wheezes rales or rhonchi. HEART: Regular rate and rhythm without murmurs ABDOMEN: Soft, nontender, nondistended abdomen. No guarding, no rebound. No masses appreciated. Female : deferred Musculoskeletal: Normal range of motion, no pitting or edema. No cyanosis. NEUROLOGICAL: Cranial nerves grossly intact. Normal speech, normal gait. Normal sensory, motor exams PSYCH: Normal mood, normal affect. SKIN: Warm, Dry, normal turgor, no rashes or lesions noted. Dictation was performed using [employer] voice recognition software Course - Re-evaluation Re-evalutation: 02/16/18 10:30 Lab work pending we will perform pelvic exam explained to her that she must have Pap smear done by COURT ADMINISTRATOR 02/16/18 11:40 Patient's presentation is concerning for a sexually transmitted disease, patient will be given follow-up with the health department for further evaluation and care, Patient will be treated for gonorrhea and chlamydia here Safe sex instructions provided After performing a Medical Screening Examination, I estimate there is LOW risk for ACUTE APPENDICITIS, BOWEL OBSTRUCTION, ACUTE CHOLECYSTITIS, PERFORATED DIVERTICULITIS, INCARCERATED HERNIA, PANCREATITIS, PELVIC INFLAMMATORY DISEASE, PERFORATED ULCER, ECTOPIC , or TUBO-OVARIAN ABSCESS, thus I consider the discharge disposition reasonable. Also, there is no evidence or peritonitis , sepsis, or toxicity. I have reevaluated this patient multiple times and no significant life threatening changes are noted. The patient and I have discussed the diagnosis and risks, and we agree with discharging home with close follow-up with the understanding that symptoms and presentations can change. We also discussed returning to the Emergency Department immediately if new or worsening symptoms occur. We have discussed the symptoms which are most concerning (e.g., bloody stool, fever, changing or worsening pain, vomiting) that necessitate immediate return. - Vital Signs Vital signs: Temp Pulse Resp BP Pulse Ox 98.3 F 99 18 130/77 H 96 02/16/18 09:35 02/16/18 09:35 02/16/18 09:35 02/16/18 09:35 02/16/18 09:35 - Laboratory Result Diagrams: 02/16/18 09:52 02/16/18 09:52 Laboratory results interpreted by me: 02/16/18 02/16/18 02/16/18 09:52 09:52 09:52 Monocytes % 2.3 L Eosinophils % 8.3 H Glucose 117 H Urine Protein 30 H Ur Leukocyte Esterase LARGE H Urine Ascorbic Acid 40 H Discharge - Discharge Clinical Impression: Pelvic pain, Concern about sexually transmitted disease in female without diagnosis Condition: Stable Disposition: HOME, SELF-CARE Prescriptions: Cephalexin Monohydrate [Keflex 500 mg Capsule] 500 mg PO BID 5 Days capsule Referrals: HEALTH DEPT,[facility] [NO LOCAL MD] - Follow up tomorrow
[2018-02-16 10:31] LABS: ALANINE AMINOTRANSFERASE 35 U/L (9-52); ALBUMIN 4.2 g/dL (3.5-5.0); ALKALINE PHOSPHATASE 65 U/L (38-126); ANION GAP 11 (5-19); ASPARTATE AMINO TRANSFERASE 32 U/L (14-36); BILIRUBIN,DIRECT 0.2 mg/dL (0.0-0.4); BILIRUBIN,TOTAL 0.4 mg/dL (0.2-1.3); BLOOD UREA NITROGEN 9 mg/dL (7-20); CALCIUM 9.7 mg/dL (8.4-10.2); CARBON DIOXIDE 28 mmol/L (22-30); CHLORIDE 104 mmol/L (98-107); GLUCOSE 117 mg/dL (75-110); LIPASE 31.9 U/L (23-300); POTASSIUM 3.7 mmol/L (3.6-5.0); SODIUM 142.6 mmol/L (137-145); TOTAL PROTEIN 6.9 g/dL (6.3-8.2)
[2018-02-16 11:12] LABS: BACTERIA (WET MOUNT) 3+ BACTERIA SEEN; RBCS (WET MOUNT) RARE RBCS SEEN; T.VAGINALIS (WET MOUNT) NO TRICHOMONAS SEEN; WBCS (WET MOUNT) 3+ WBCS SEEN; YEAST (WET MOUNT) NO YEAST SEEN
[2018-02-16] MEDS ORDERED: LIDOCAINE 1% INJ-PF (10 MG/ML) 30 ML SDV INFIL ONE (11:20)
[2018-02-16] MEDS ORDERED: AZITHROMYCIN 250 MG TABLET PO ONE (11:20)
[2018-02-16] MEDS ORDERED: CEFTRIAXONE INJ 250 MG VIAL IM ONE (11:20)
[2018-02-16] MEDS ORDERED: ALBUTEROL SULFATE HFA (90 MCG/PUFF) 8 GM MDI (1 MDI/ER DISP) IH PRN (11:47)
[2018-02-16 11:50] LABS: CHLAM PCR DETECTED (NOT DETECT); GON PCR NOT DETECTED (NOT DETECT)
[2018-02-16 12:39] VITALS: BP 115/64
== END 2018-02-16 12:35 | disposition home or self-care (01) ==
LOC: ER 09:27
DX: J45.21 Mild intermittent asthma with (acute) exacerbation (principal); N30.00 Acute cystitis without hematuria; A74.9 Chlamydial infection, unspecified; B20 Human immunodeficiency virus [HIV] disease; R10.2 Pelvic and perineal pain
CPT/HCPCS: 99284; 96372; 36415; 87210; 83690; 85025; 80053; 81001; 87491; 87591; J3490 ×2; J0696

== ENCOUNTER 2018-07-14 21:14 | Emergency (ER) | payer SELFPAY ==
[2018-07-15] MEDS ORDERED: IPRATROPIUM/ALBUTEROL 0.5-2.5 MG/3 ML AMPUL NEB ONE (00:51)
[2018-07-15] MEDS ORDERED: MAGNESIUM SULFATE/D5W 1 GM/100 ML RTUPB IV ONE (00:52)
[2018-07-15] MEDS ORDERED: NORMAL SALINE 500 ML IV ONE (00:52)
[2018-07-15 02:22] LABS: BACTERIA (WET MOUNT) 3+ BACTERIA SEEN; RBCS (WET MOUNT) FEW RBCS SEEN; T.VAGINALIS (WET MOUNT) NO TRICHOMONAS SEEN; WBCS (WET MOUNT) 3+ WBCS SEEN; YEAST (WET MOUNT) NO YEAST SEEN
[2018-07-15 02:28] LABS: APPEARANCE,URINE CLOUDY; BILIRUBIN,URINE NEGATIVE (NEGATIVE); COLOR,URINE YELLOW; GLUCOSE, URINE NEGATIVE (NEGATIVE); KETONES,URINE NEGATIVE (NEGATIVE); LEUKOCYTE ESTERASE,URINE MODERATE (NEGATIVE); NITRITE,URINE NEGATIVE (NEGATIVE); PROTEIN,URINE NEGATIVE (NEGATIVE); UROBILINOGEN,URINE NEGATIVE mg/dL (<2.0)
[2018-07-15] MEDS ORDERED: AZITHROMYCIN 1 GM SUSP PACKET PO ONE (02:32)
[2018-07-15] MEDS ORDERED: LIDOCAINE 1% INJ-PF (10 MG/ML) 30 ML SDV INFIL ONE (02:32)
[2018-07-15] MEDS ORDERED: CEFTRIAXONE INJ 250 MG VIAL IM ONE (02:32)
[2018-07-15] MEDS ORDERED: METRONIDAZOLE 500 MG TABLET PO ONE (02:38)
[2018-07-15] MEDS ORDERED: ALBUTEROL SULFATE HFA (90 MCG/PUFF) 8 GM MDI (1 MDI/ER DISP) IH ONE (02:38)
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
[2018-07-15 02:50] LABS: ANION GAP 10 (5-19); BLOOD UREA NITROGEN 9 mg/dL (7-20); CALCIUM 9.6 mg/dL (8.4-10.2); CARBON DIOXIDE 28 mmol/L (22-30); CHLORIDE 107 mmol/L (98-107); GLUCOSE 88 mg/dL (75-110); POTASSIUM 3.8 mmol/L (3.6-5.0); SODIUM 145.4 mmol/L (137-145)
[2018-07-15 03:37] VITALS: BP 137/66
[2018-07-15 03:47] LABS: CHLAM PCR NOT DETECTED (NOT DETECT); GON PCR NOT DETECTED (NOT DETECT)
== END 2018-07-15 03:38 | disposition home or self-care (01) ==
LOC: ER 21:14
DX: J45.901 Unspecified asthma with (acute) exacerbation (principal); N76.0 Acute vaginitis; B96.89 Other specified bacterial agents as the cause of diseases classified elsewhere; R06.02 Shortness of breath; R10.2 Pelvic and perineal pain; R05 Cough; Z21 Asymptomatic human immunodeficiency virus [HIV] infection status
CPT/HCPCS: 94640; 99285; 96372; 96365; 96366; 36415; 87210; 83735; 84703; 80048; 81001; 87491; 87591; J3490 ×2; Q0144; J3475; J0696; J7620

== ENCOUNTER 2018-09-21 23:32 | Emergency (ER) | payer SELFPAY ==
[2018-09-22] MEDS ORDERED: NORMAL SALINE 1000 ML 1,000 ML IV ONE ×2 (01:27→05:39)
[2018-09-22] MEDS ORDERED: ONDANSETRON HCL INJ/PF 4 MG/2 ML SDV IV ONE (01:27)
--- NOTE | 2018-09-22 01:29 | ER Document Report ---
ED Medical Screen (RME) - General Chief Complaint: Nausea/Vomiting/Diarrhea Stated Complaint: VOMITING, DIARRHEA, PAIN Time Seen by Provider: 09/22/18 01:26 Notes: Patient is a 27-year-old female presenting to the emergency department complaining of 6 episodes of nonbloody vomiting today along with 5 episodes of nonbloody diarrhea. Patient also stating she has suprapubic abdominal pain. Patient is denying fever, dysuria, vaginal discharge. Past medical history: None Medications: None Allergies: None Patient states last menstrual period was months ago she has not taken a home test and she is worried that she may be . Physical exam: Abdomen is obese, soft nontender all 4 quadrants, minor suprapubic tenderness upon palpation. No CVA tenderness bilaterally. I have greeted and performed a rapid initial assessment of this patient. A comprehensive ED assessment and evaluation of the patient, analysis of test results and completion of the medical decision making process will be conducted by additional ED providers. TRAVEL OUTSIDE OF THE [place] IN LAST 30 DAYS: No - Related Data Allergies/Adverse Reactions: No Known Allergies Allergy (Verified 02/16/18 09:41) Past Medical History Pulmonary Medical History: Reports: Hx Asthma - bronchitis, Hx Bronchitis, Hx Pneumonia Renal/ Medical History: Denies: Hx Peritoneal Dialysis Malignancy Medical History: Reports: Hx Lymphoma - POSSIBLE, HAS NOT FOLLOWED UP ADVISED. Psychiatric Medical History: Denies: Hx Depression Infectious Medical History: Reports: Hx HIV - POSITIVE HIV TEST ON LAST ADMISSION TO [facility] - Immunizations Immunizations up to date: No Hx Diphtheria, Pertussis, Tetanus Vaccination: Yes Physical Exam - Vital signs Vitals: Temp Pulse Resp BP Pulse Ox 99.3 F 100 20 124/65 96 09/22/18 00:22 09/22/18 00:22 09/22/18 00:22 09/22/18 00:22 09/22/18 00:22 Course - Vital Signs Vital signs: Temp Pulse Resp BP Pulse Ox 99.3 F 100 20 124/65 96 09/22/18 00:22 09/22/18 00:22 09/22/18 00:22 09/22/18 00:22 09/22/18 00:22
[2018-09-22 02:21] LABS: ABSOLUTE EOSINOPHILS # (AUTO) 0.1 10^3/uL (0.0-0.6); ABSOLUTE LYMPHOCYTES (AUTO) 0.7 10^3/uL (0.5-4.7); ABSOLUTE MONOCYTES (AUTO) 0.3 10^3/uL (0.1-1.4); ABSOLUTE NEUT (AUTO) 6.7 10^3/uL (1.7-8.2); BASOPHILS % (AUTO) 0.2 % (0-2); EOSINOPHILS % (AUTO) 1.7 % (0-6); HEMATOCRIT 41.1 % (36.0-47.0); HEMOGLOBIN 14.4 g/dL (12.0-15.5); LYMPHOCYTES % (AUTO) 8.8 % (13-45); MEAN CORPUSCULAR HEMOGLOBIN 29.3 pg (27.0-33.4); MEAN CORPUSCULAR HGB CONC 35.1 g/dL (32.0-36.0); MEAN CORPUSCULAR VOLUME 84 fl (80-97); MONOCYTES % (AUTO) 4.1 % (3-13); PLATELET COUNT 282 10^3/uL (150-450); RED BLOOD COUNT 4.92 10^6/uL (3.72-5.28); RED CELL DISTRIBUTION WIDTH 13.4 % (11.5-14.0); SEGMENTED NEUTROPHILS % (AUTO) 85.2 % (42-78); TOTAL CELLS COUNTED % (AUTO) 100 %; WHITE BLOOD COUNT 7.9 10^3/uL (4.0-10.5)
[2018-09-22 02:38] LABS: ALANINE AMINOTRANSFERASE 21 U/L (9-52); ALBUMIN 4.4 g/dL (3.5-5.0); ALKALINE PHOSPHATASE 72 U/L (38-126); ANION GAP 12 (5-19); ASPARTATE AMINO TRANSFERASE 30 U/L (14-36); BILIRUBIN,DIRECT 0.3 mg/dL (0.0-0.4); BILIRUBIN,TOTAL 0.7 mg/dL (0.2-1.3); BLOOD UREA NITROGEN 14 mg/dL (7-20); CALCIUM 9.4 mg/dL (8.4-10.2); CARBON DIOXIDE 26 mmol/L (22-30); CHLORIDE 104 mmol/L (98-107); GLUCOSE 101 mg/dL (75-110); POTASSIUM 4.1 mmol/L (3.6-5.0); SODIUM 141.8 mmol/L (137-145); TOTAL PROTEIN 7.4 g/dL (6.3-8.2)
[2018-09-22] MEDS ORDERED: PROMETHAZINE HCL INJ 25 MG/1 ML VIAL IV ONE (04:20)
[2018-09-22 04:45] LABS: APPEARANCE,URINE CLOUDY; BILIRUBIN,URINE NEGATIVE (NEGATIVE); COLOR,URINE YELLOW; GLUCOSE, URINE NEGATIVE (NEGATIVE); KETONES,URINE NEGATIVE (NEGATIVE); LEUKOCYTE ESTERASE,URINE MODERATE (NEGATIVE); NITRITE,URINE NEGATIVE (NEGATIVE); PROTEIN,URINE NEGATIVE (NEGATIVE); URINE SPECIFIC GRAVITY 1.029; UROBILINOGEN,URINE NEGATIVE mg/dL (<2.0)
--- NOTE | 2018-09-22 06:45 | ER Document Report ---
ED General - General Chief Complaint: Nausea/Vomiting/Diarrhea Stated Complaint: VOMITING, DIARRHEA, PAIN Time Seen by Provider: 09/22/18 01:26 Notes: Patient is a 27-year-old female presenting to the emergency department complaining of 6 episodes of nonbloody vomiting today along with 5 episodes of nonbloody diarrhea. Patient also stating she has suprapubic dull abdominal pain. Patient is denying fever, dysuria, vaginal discharge or URI symptoms. Past medical history: None Medications: None Allergies: None Patient states last menstrual period was months ago she has not taken a home test and she is worried that she may be . TRAVEL OUTSIDE OF THE [place] IN LAST 30 DAYS: No - Related Data Allergies/Adverse Reactions: No Known Allergies Allergy (Verified 02/16/18 09:41) Past Medical History - General Information source: Patient - Social History Smoking Status: Current Every Day Smoker Chew tobacco use (# tins/day): No Frequency of alcohol use: None Drug Abuse: None Lives with: Family Family History: Reviewed & Not Pertinent, Other - Mother committed suicide, no history of granulomatous lung disease in the family Patient has suicidal ideation: No Patient has homicidal ideation: No Pulmonary Medical History: Reports: Hx Asthma - bronchitis, Hx Bronchitis, Hx Pneumonia Renal/ Medical History: Denies: Hx Peritoneal Dialysis Malignancy Medical History: Reports: Hx Lymphoma - POSSIBLE, HAS NOT FOLLOWED UP ADVISED. Psychiatric Medical History: Denies: Hx Depression Infectious Medical History: Reports: Hx HIV - POSITIVE HIV TEST [facility] - Immunizations Immunizations up to date: No Hx Diphtheria, Pertussis, Tetanus Vaccination: Yes Hx Pneumococcal Vaccination: 10/20/14 Review of Systems - Review of Systems Constitutional: See HPI EENT: See HPI Cardiovascular: No symptoms reported Respiratory: See HPI Gastrointestinal: See HPI Genitourinary: See HPI Female Genitourinary: See HPI Musculoskeletal: No symptoms reported Skin: No symptoms reported Hematologic/Lymphatic: No symptoms reported Neurological/Psychological: No symptoms reported Physical Exam - Vital signs Vitals: Temp Pulse Resp BP Pulse Ox 99.3 F 100 20 124/65 96 09/22/18 00:22 09/22/18 00:22 09/22/18 00:22 09/22/18 00:22 09/22/18 00:22 - Notes Notes: GENERAL: Alert, interacts well. No acute distress. HEAD: Normocephalic, atraumatic. EYES: Pupils equal, round, and reactive to light. Extraocular movements intact. ENT: Oral mucosa moist, tongue midline. NECK: Full range of motion. Supple. Trachea midline. LUNGS: Clear to auscultation bilaterally, no wheezes, rales, or rhonchi. No respiratory distress. HEART: Regular rate and rhythm. No murmur ABDOMEN: Soft, non-tender. Non-distended. Bowel sounds present in all 4 quadrants. Very minor suprapubic tenderness upon deep palpation. EXTREMITIES: Moves all 4 extremities spontaneously. No edema, normal radial and dorsalis pe no McBurney's point tenderness, no Ricks sign. Dis pulses bilaterally. No cyanosis. BACK: no cervical, thoracic, lumbar midline tenderness. No saddle anesthesia, normal distal neurovascular exam. No CVA tenderness bilaterally NEUROLOGICAL: Alert and oriented x3. Normal speech. cranial nerves II through XII grossly intact PSYCH: Normal affect, normal mood. SKIN: Warm, dry, normal turgor. No rashes or lesions noted. Course - Re-evaluation Re-evalutation: Initially with Zofran patient states very minor relief of nausea. She continues to not vomit or have diarrhea in the emergency room. Patient was then given Phenergan for her nausea and she stated she no longer feeling nauseated. Patient also denies suprapubic abdominal pain at this time. Patient's spec grav was elevated so she was treated with 2 L of normal saline fluid in the emergency room. Patient continues to deny dysuria, will send urine for culture. Patient continues to deny vaginal discharge at this time. Return precautions discussed. Patient is afebrile and not tachycardic at this time. - Vital Signs Vital signs: Temp Pulse Resp BP Pulse Ox 99.3 F 100 20 124/65 96 09/22/18 00:22 09/22/18 00:22 09/22/18 00:22 09/22/18 00:22 09/22/18 00:22 - Laboratory Result Diagrams: 09/22/18 02:11 09/22/18 02:11 Laboratory results interpreted by me: 09/22/18 09/22/18 02:11 04:18 Seg Neutrophils % 85.2 H Lymphocytes % 8.8 L Urine Blood SMALL H Ur Leukocyte Esterase MODERATE H Urine Ascorbic Acid 40 H Discharge - Discharge Clinical Impression: Nausea & vomiting Qualifiers: Vomiting type: unspecified Vomiting Intractability: non-intractable Qualified Code(s): R11.2 - Nausea with vomiting, unspecified Diarrhea Qualifiers: Diarrhea type: unspecified type Qualified Code(s): R19.7 - Diarrhea, unspecified Condition: Stable Disposition: HOME, SELF-CARE Instructions: Vomiting ([facility]), Intravenous (IV) Fluids ([facility]), Diarrhea, Nonspecific ([facility]), Reglan ([facility]) Prescriptions: Metoclopramide HCl [Reglan 10 mg Tablet] 1 - 2 tab PO ASDIR PRN #25 tablet PRN Reason: Forms: Return to Work
[2018-09-22 07:18] VITALS: BP 113/57
== END 2018-09-22 07:18 | disposition home or self-care (01) ==
LOC: ER 23:32
DX: R11.2 Nausea with vomiting, unspecified (principal); R19.7 Diarrhea, unspecified; J45.909 Unspecified asthma, uncomplicated; B20 Human immunodeficiency virus [HIV] disease; Z72.0 Tobacco use; Z87.01 Personal history of pneumonia (recurrent)
CPT/HCPCS: 99284; 96361; 96374; 96375; 36415; 87086; 84702; 85025; 80053; 81001; J2550; J2405; J7030

== ENCOUNTER 2019-01-27 19:42 | Inpatient (IN) | payer SELFPAY ==
[2019-01-27] MEDS ORDERED: ASPIRIN 81 MG TABLET, CHEWABLE PO ONE (20:34)
--- NOTE | 2019-01-27 20:37 | ER Document Report ---
ED Medical Screen (RME) - General Chief Complaint: Chest Pain Stated Complaint: CHEST PAIN Time Seen by Provider: 01/27/19 20:29 Mode of Arrival: Wheelchair Information source: Patient - Patient presents to the emergency Notes: She presents emergency department with complaints of midsternal chest pain that started this afternoon. Patient reports she had body pain for the past 2 days. Patient also reports that a headache at 2:00 and she had to leave work at [email or web address]. At 3:00 she started having chest pain. Denies history of cardiac disease. Upon arrival into the room patient would not answer questions she acted like she was out of it possibly on drugs. She did report to the nurse that she had taken opiates from family because of the pain. Because we could not understand her and she would not answer questions we asked for her baby dadalina, is how he referred himself as, to come in and tell us what he had seen. He repeated basically the same story but denied that she had taken any type of opiates. Patient did become more alert at that time. EKG sinus tach no obvious changes from previous EKG I have greeted and performed a rapid initial assessment of this patient. A com prehensive ED assessment and evaluation of the patient, analysis of test results and completion of the medical decision making process will be conducted by additional ED providers. Dictation of this chart was performed using voice recognition software; therefore, there may be some unintended grammatical errors. TRAVEL OUTSIDE OF THE [place] IN LAST 30 DAYS: No - Related Data Allergies/Adverse Reactions: No Known Allergies Allergy (Verified 01/27/19 19:43) Past Medical History Pulmonary Medical History: Reports: Hx Asthma - bronchitis, Hx Bronchitis, Hx Pneumonia Renal/ Medical History: Denies: Hx Peritoneal Dialysis Malignancy Medical History: Reports: Hx Lymphoma - POSSIBLE, HAS NOT FOLLOWED UP ADVISED. Psychiatric Medical History: Denies: Hx Depression Infectious Medical History: Reports: Hx HIV - POSITIVE HIV TEST ON LAST ADMISSION TO [facility] - Immunizations Immunizations up to date: No Hx Diphtheria, Pertussis, Tetanus Vaccination: Yes
[2019-01-27 21:18] LABS: ABSOLUTE EOSINOPHILS # (AUTO) 0.3 10^3/uL (0.0-0.6); ABSOLUTE LYMPHOCYTES (AUTO) 1.9 10^3/uL (0.5-4.7); ABSOLUTE MONOCYTES (AUTO) 0.7 10^3/uL (0.1-1.4); ABSOLUTE NEUT (AUTO) 10.3 10^3/uL (1.7-8.2); BASOPHILS % (AUTO) 0.3 % (0-2); EOSINOPHILS % (AUTO) 2.3 % (0-6); HEMATOCRIT 41.9 % (36.0-47.0); HEMOGLOBIN 14.2 g/dL (12.0-15.5); LYMPHOCYTES % (AUTO) 14.2 % (13-45); MEAN CORPUSCULAR HEMOGLOBIN 29.5 pg (27.0-33.4); MEAN CORPUSCULAR VOLUME 87 fl (80-97); MONOCYTES % (AUTO) 5.1 % (3-13); PLATELET COUNT 102 10^3/uL (150-450); RED BLOOD COUNT 4.82 10^6/uL (3.72-5.28); RED CELL DISTRIBUTION WIDTH 13.7 % (11.5-14.0); SEGMENTED NEUTROPHILS % (AUTO) 78.1 % (42-78); TOTAL CELLS COUNTED % (AUTO) 100 %; WHITE BLOOD COUNT 13.2 10^3/uL (4.0-10.5)
--- NOTE | 2019-01-27 21:42 | RADIOLOGY REPORT (SQ) ---
EXAM DESCRIPTION: [facility]: XR CHEST 2 VIEWS Views: 2 CLINICAL HISTORY: 28 years Female, cp COMPARISON: 10/14/2016 FINDINGS: The lungs are clear. No pneumothorax or significant pleural effusion. Cardiomediastinal silhouette is within normal limits. Bony structures are unremarkable for age. IMPRESSION: 1. No acute cardiothoracic abnormality.
--- NOTE | 2019-01-27 22:32 | ER Document Report ---
ED General - General Chief Complaint: Chest Pain Stated Complaint: CHEST PAIN Time Seen by Provider: 01/27/19 20:29 Mode of Arrival: Wheelchair Notes: Patient is a 28-year-old female with history of lymphoma versus sarcoidosis that presents to the emergency department for chief complaint of shortness of breath and chest pain. Patient states she started having this pain shortly after leaving work. She states that the pain is in the middle of her chest, does go to the back at times. This started around 3 PM today. She is felt short of breath associated with it as well. She denies prior history of DVT or PE, she states that she was diagnosed with lymphoma 2 years ago, states she did not follow-up. She does report having a cough as well. She states she was told she may have sarcoidosis, but again did not follow-up on this. She denies having any fevers, chills, night sweats, nausea, vomiting or abdominal pain. She does not believe that she is . She does note she started on some weight loss pills about 1 month ago, but has not had issues with them since starting them. Past Medical History: Lymphoma versus sarcoidosis Past Surgical History: Bronchoscopy Social History: Admits to smoking cigarettes, denies alcohol or drug use. Family History: Reviewed and noncontributory for presenting illness Allergies: Reviewed, see documented allergy list. REVIEW OF SYSTEMS: Other than noted above, the 12 point review of systems was reviewed with the patient and were negative, all pertinent findings are included in the HPI. PHYSICAL EXAMINATION: Vital signs reviewed, nursing noted reviewed. GENERAL: Obese female, appears to be uncomfortable, complaining of pain HEAD: Atraumatic, normocephalic. EYES: Eyes appear normal, extraocular movements intact, sclera anicteric, conjunctiva are normal. ENT: nares patent, oropharynx clear without exudates. Moist mucous membranes. NECK: Normal range of motion, supple without lymphadenopathy LUNGS: Breath sounds clear to auscultation bilaterally and equal. No wheezes rales or rhonchi. But mild increased work of breathing. HEART: Rate tachycardic, regular rhythm, no audible murmur ABDOMEN: Soft, nontender, normoactive bowel sounds. No rebound, guarding, or rigidity. No masses appreciated. EXTREMITIES: Nontender, good range of motion, no pitting or edema. Pulses, equal bilaterally distally in the lower and upper extremities NEUROLOGICAL: No focal neurological deficits. Moves all extremities spontaneously Motor and sensory grossly intact on exam. PSYCH: Normal mood, normal affect. SKIN: Warm, Dry, normal turgor, no rashes or lesions noted on exposed skin TRAVEL OUTSIDE OF THE [place] IN LAST 30 DAYS: No - Related Data Allergies/Adverse Reactions: No Known Allergies Allergy (Verified 01/27/19 19:43) Past Medical History - General Information source: Patient - Patient presents to the emergency - Social History Smoking Status: Current Every Day Smoker Chew tobacco use (# tins/day): No Frequency of alcohol use: Occasional Drug Abuse: None Family History: Reviewed & Not Pertinent, Other - Mother committed suicide, no history of granulomatous lung disease in the family Patient has suicidal ideation: No Patient has homicidal ideation: No Pulmonary Medical History: Reports: Hx Asthma - bronchitis, Hx Bronchitis, Hx Pneumonia Renal/ Medical History: Denies: Hx Peritoneal Dialysis Malignancy Medical History: Reports: Hx Lymphoma - POSSIBLE, HAS NOT FOLLOWED UP ADVISED. Psychiatric Medical History: Denies: Hx Depression Infectious Medical History: Reports: Hx HIV - POSITIVE HIV TEST ON LAST ADMISSION TO [facility] - Immunizations Immunizations up to date: No Hx Diphtheria, Pertussis, Tetanus Vaccination: Yes Hx Pneumococcal Vaccination: 10/20/14 Physical Exam - Vital signs Vitals: Temp Pulse Resp BP Pulse Ox 99.7 F 134 H 20 128/78 H 98 01/27/19 20:05 01/27/19 20:05 01/27/19 20:05 01/27/19 20:05 01/27/19 20:05 Course - Re-evaluation Re-evalutation: Patient seen and examined vital signs reviewed. Laboratory data and imaging were ordered as appropriate for the patient's presenting symptoms and complaint, with consideration of any critical or life threatening conditions that may be associated with their obtained history and exam as noted above. Patient was treated with IV fluids, Toradol, and Zofran. Patient still having pain and was therefore given some fentanyl to help ease of her pleuritic pain. Results were reviewed when available and demonstrated negative chest x-ray, but CT imaging demonstrated a left upper lobe pneumonia, with chronic bronchiectasis findings, that was seen on her prior CTs that she had back in 2016. However this pneumonia appeared to be new. She did have a leukocytosis noted on her blood work, patient was persistently tachycardic, and the 130s, despite IV fluid, she was started on IV Rocephin and azithromycin The patient was re-evaluated and was still tachycardic, and was complaining of pain, advised her that narcotic pain medications not indicated at this time, but I would recommend admission to the hospital given that she is persistently tachycardic, and has a consolidative pneumonia on her CT imaging, and with history of her lung disease. Evaluation was most consistent with pneumonia, persistent sinus tachycardia, leukocytosis Results were discussed with the patient at this point after careful consideration I feel that that patient should be admitted to the hospital. This was discussed with the patient that it is in the best interest for their care to be admitted for further evaluation and management. Patient agreed with this plan of care. A call was placed to the admitted physician, Dr. Yuan who graciously accepted the patient onto their service. *Note is created using voice recognition software and may contain spelling, syntax or grammatical errors. Laboratory 01/27/19 01/27/19 01/27/19 21:02 21:02 21:02 WBC 13.2 H RBC 4.82 Hgb 14.2 Hct 41.9 MCV 87 MCH 29.5 MCHC 34.0 RDW 13.7 Plt Count 102 L Seg Neutrophils % 78.1 H Lymphocytes % 14.2 Monocytes % 5.1 Eosinophils % 2.3 Basophils % 0.3 Absolute Neutrophils 10.3 H Absolute Lymphocytes 1.9 Absolute Monocytes 0.7 Absolute Eosinophils 0.3 Absolute Basophils 0.0 ESR Sodium Cancelled Potassium Cancelled Chloride Cancelled Carbon Dioxide Cancelled Anion Gap Cancelled BUN Cancelled Creatinine Cancelled Est GFR ( Amer) Cancelled Est GFR (Non-Af Amer) Cancelled Glucose Cancelled Calcium Cancelled Total Bilirubin Cancelled Direct Bilirubin Cancelled Neonat Total Bilirubin Cancelled Neonat Direct Bilirubin Cancelled Neonat Indirect Bili Cancelled AST Cancelled ALT Cancelled Alkaline Phosphatase Cancelled Creatine Kinase Cancelled CK-MB (CK-2) Troponin I C-Reactive Protein Total Protein Cancelled Albumin Cancelled TSH Serum HCG, Qual NEGATIVE Urine Color Urine Appearance Urine pH Ur Specific Effie Urine Protein Urine Glucose (UA) Urine Ketones Urine Blood Urine Nitrite Urine Bilirubin Urine Urobilinogen Ur Leukocyte Esterase Urine WBC (Auto) Urine RBC (Auto) Squamous Epi Cells Auto Urine Mucus (Auto) Urine Ascorbic Acid Urine Opiates Screen Urine Methadone Screen Ur Barbiturates Screen Ur Phencyclidine Scrn Ur Amphetamines Screen U Benzodiazepines Scrn Urine Cocaine Screen U Marijuana (THC) Screen 01/27/19 01/27/19 01/27/19 21:02 23:28 23:28 WBC RBC Hgb Hct MCV MCH MCHC RDW Plt Count Seg Neutrophils % Lymphocytes % Monocytes % Eosinophils % Basophils % Absolute Neutrophils Absolute Lymphocytes Absolute Monocytes Absolute Eosinophils Absolute Basophils ESR Sodium Cancelled Potassium Cancelled Chloride Cancelled Carbon Dioxide Cancelled Anion Gap Cancelled BUN Cancelled Creatinine Cancelled Est GFR ( Amer) Cancelled Est GFR (Non-Af Amer) Cancelled Glucose Cancelled Calcium Cancelled Total Bilirubin Cancelled Direct Bilirubin Cancelled Neonat Total Bilirubin Cancelled Neonat Direct Bilirubin Cancelled Neonat Indirect Bili Cancelled AST Cancelled ALT Cancelled Alkaline Phosphatase Cancelled Creatine Kinase Cancelled CK-MB (CK-2) Cancelled Cancelled Troponin I Cancelled Cancelled C-Reactive Protein Total Protein Cancelled Albumin Cancelled TSH Serum HCG, Qual Urine Color Urine Appearance Urine pH Ur Specific Effie Urine Protein Urine Glucose (UA) Urine Ketones Urine Blood Urine Nitrite Urine Bilirubin Urine Urobilinogen Ur Leukocyte Esterase Urine WBC (Auto) Urine RBC (Auto) Squamous Epi Cells Auto Urine Mucus (Auto) Urine Ascorbic Acid Urine Opiates Screen Urine Methadone Screen Ur Barbiturates Screen Ur Phencyclidine Scrn Ur Amphetamines Screen U Benzodiazepines Scrn Urine Cocaine Screen U Marijuana (THC) Screen 01/27/19 01/28/19 01/28/19 23:28 00:26 00:26 WBC RBC Hgb Hct MCV MCH MCHC RDW Plt Count Seg Neutrophils % Lymphocytes % Monocytes % Eosinophils % Basophils % Absolute Neutrophils Absolute Lymphocytes Absolute Monocytes Absolute Eosinophils Absolute Basophils ESR Sodium 136.5 L Potassium 3.4 L Chloride 102 Carbon Dioxide 25 Anion Gap 10 BUN 8 Creatinine 0.71 Est GFR ( Amer) > 60 Est GFR (Non-Af Amer) > 60 Glucose 101 Calcium 9.2 Total Bilirubin 0.4 Direct Bilirubin 0.2 Neonat Total Bilirubin Not Reportable Neonat Direct Bilirubin Not Reportable Neonat Indirect Bili Not Reportable AST 20 ALT 30 Alkaline Phosphatase 64 Creatine Kinase 228 H CK-MB (CK-2) Troponin I C-Reactive Protein Total Protein 6.6 Albumin 3.8 TSH Cancelled 1.19 Serum HCG, Qual Urine Color Urine Appearance Urine pH Ur Specific Effie Urine Protein Urine Glucose (UA) Urine Ketones Urine Blood Urine Nitrite Urine Bilirubin Urine Urobilinogen Ur Leukocyte Esterase Urine WBC (Auto) Urine RBC (Auto) Squamous Epi Cells Auto Urine Mucus (Auto) Urine Ascorbic Acid Urine Opiates Screen Urine Methadone Screen Ur Barbiturates Screen Ur Phencyclidine Scrn Ur Amphetamines Screen U Benzodiazepines Scrn Urine Cocaine Screen U Marijuana (THC) Screen 01/28/19 01/28/19 01/28/19 00:26 00:26 00:26 WBC RBC Hgb Hct MCV MCH MCHC RDW Plt Count Seg Neutrophils % Lymphocytes % Monocytes % Eosinophils % Basophils % Absolute Neutrophils Absolute Lymphocytes Absolute Monocytes Absolute Eosinophils Absolute Basophils ESR 15 Sodium Potassium Chloride Carbon Dioxide Anion Gap BUN Creatinine Est GFR ( Amer) Est GFR (Non-Af Amer) Glucose Calcium Total Bilirubin Direct Bilirubin Neonat Total Bilirubin Neonat Direct Bilirubin Neonat Indirect Bili AST ALT Alkaline Phosphatase Creatine Kinase CK-MB (CK-2) 1.14 Troponin I < 0.012 C-Reactive Protein 50.4 H Total Protein Albumin TSH Serum HCG, Qual Urine Color Urine Appearance Urine pH Ur Specific Effie Urine Protein Urine Glucose (UA) Urine Ketones Urine Blood Urine Nitrite Urine Bilirubin Urine Urobilinogen Ur Leukocyte Esterase Urine WBC (Auto) Urine RBC (Auto) Squamous Epi Cells Auto Urine Mucus (Auto) Urine Ascorbic Acid Urine Opiates Screen Urine Methadone Screen Ur Barbiturates Screen Ur Phencyclidine Scrn Ur Amphetamines Screen U Benzodiazepines Scrn Urine Cocaine Screen U Marijuana (THC) Screen 01/28/19 01/28/19 01:55 01:55 WBC RBC Hgb Hct MCV MCH MCHC RDW Plt Count Seg Neutrophils % Lymphocytes % Monocytes % Eosinophils % Basophils % Absolute Neutrophils Absolute Lymphocytes Absolute Monocytes Absolute Eosinophils Absolute Basophils ESR Sodium Potassium Chloride Carbon Dioxide Anion Gap BUN Creatinine Est GFR ( Amer) Est GFR (Non-Af Amer) Glucose Calcium Total Bilirubin Direct Bilirubin Neonat Total Bilirubin Neonat Direct Bilirubin Neonat Indirect Bili AST ALT Alkaline Phosphatase Creatine Kinase CK-MB (CK-2) Troponin I C-Reactive Protein Total Protein Albumin TSH Serum HCG, Qual Urine Color YELLOW Urine Appearance SLIGHTLY-CLOUDY Urine pH 5.0 Ur Specific Effie 1.045 Urine Protein NEGATIVE Urine Glucose (UA) NEGATIVE Urine Ketones NEGATIVE Urine Blood NEGATIVE Urine Nitrite NEGATIVE Urine Bilirubin NEGATIVE Urine Urobilinogen NEGATIVE Ur Leukocyte Esterase SMALL H Urine WBC (Auto) 18 Urine RBC (Auto) 1 Squamous Epi Cells Auto 3 Urine Mucus (Auto) FEW Urine Ascorbic Acid NEGATIVE Urine Opiates Screen NEGATIVE Urine Methadone Screen NEGATIVE Ur Barbiturates Screen NEGATIVE Ur Phencyclidine Scrn NEGATIVE Ur Amphetamines Screen NEGATIVE U Benzodiazepines Scrn NEGATIVE Urine Cocaine Screen NEGATIVE U Marijuana (THC) Screen NEGATIVE Chest X-Ray 01/27/19 20:34 IMPRESSION: 1. No acute cardiothoracic abnormality. Chest/Abdomen CTA 01/27/19 22:53 IMPRESSION: Acute bilateral pneumonia. Bilateral hilar adenopathy and bilateral lower lobe bronchiectasis, with mucus filled bronchi, findings that were also on the prior scan and are presumably chronic. TECHNICAL DOCUMENTATION: Quality ID # 436: Final reports with documentation of one or more dose reduction techniques (e.g., Automated exposure control, adjustment of the mA and/or kV according to patient size, use of iterative reconstruction technique) copyright 2011 [employer]- All Rights Reserved - Vital Signs Vital signs: Temp Pulse Resp BP Pulse Ox 99.7 F 134 H 36 H 142/88 H 97 01/27/19 20:05 01/27/19 20:05 01/28/19 04:00 01/28/19 03:01 01/28/19 04:00 - Laboratory Result Diagrams: 01/27/19 21:02 01/28/19 00:26 Laboratory results interpreted by me: 01/27/19 01/28/19 01/28/19 21:02 00:26 00:26 WBC 13.2 H Plt Count 102 L Seg Neutrophils % 78.1 H Absolute Neutrophils 10.3 H Sodium 136.5 L Potassium 3.4 L Creatine Kinase 228 H C-Reactive Protein 50.4 H Ur Leukocyte Esterase 01/28/19 01:55 WBC Plt Count Seg Neutrophils % Absolute Neutrophils Sodium Potassium Creatine Kinase C-Reactive Protein Ur Leukocyte Esterase SMALL H - EKG Interpretation by Me Additional EKG results interpreted by me: EKG demonstrates sinus tachycardia with a ventricular rate of 127 bpm, normal axis, normal intervals, no ST elevation, this is compared with prior EKG from 01/09/2016, with increased heart rate. When compared. Discharge - Discharge Clinical Impression: Tachycardia Pneumonia Qualifiers: Pneumonia type: due to unspecified organism Laterality: left Lung location: upper lobe of lung Qualified Code(s): J18.1 - Lobar pneumonia, unspecified organism Sepsis Qualifiers: Sepsis type: sepsis due to unspecified organism Qualified Code(s): A41.9 - Sepsis, unspecified organism Leukocytosis Qualifiers: Leukocytosis type: unspecified Qualified Code(s): D72.829 - Elevated white bl ood cell count, unspecified Condition: Stable Disposition: ADMITTED INPATIENT Admitting Provider: Kwabena (Hospitalist) Unit Admitted: Telemetry
[2019-01-27] MEDS ORDERED: KETOROLAC TROMETHAMINE INJ/PF 30 MG/1 ML SDV IV ONE (22:53)
[2019-01-27] MEDS ORDERED: ONDANSETRON HCL INJ/PF 4 MG/2 ML SDV IV ONE (22:53)
[2019-01-27] MEDS ORDERED: FENTANYL CITRATE INJ/PF 100 MCG/2 ML AMPUL IV ONE (23:32)
[2019-01-28] MEDS ORDERED: NORMAL SALINE 1000 ML 1,000 ML IV ONE (00:34)
[2019-01-28 00:54] LABS: ALANINE AMINOTRANSFERASE 30 U/L (9-52); ALBUMIN 3.8 g/dL (3.5-5.0); ALKALINE PHOSPHATASE 64 U/L (38-126); ANION GAP 10 (5-19); ASPARTATE AMINO TRANSFERASE 20 U/L (14-36); BILIRUBIN,DIRECT 0.2 mg/dL (0.0-0.4); BILIRUBIN,TOTAL 0.4 mg/dL (0.2-1.3); BLOOD UREA NITROGEN 8 mg/dL (7-20); CALCIUM 9.2 mg/dL (8.4-10.2); CARBON DIOXIDE 25 mmol/L (22-30); CHLORIDE 102 mmol/L (98-107); CREATINE KINASE 228 U/L (30-135); GLUCOSE 101 mg/dL (75-110); POTASSIUM 3.4 mmol/L (3.6-5.0); SODIUM 136.5 mmol/L (137-145); TOTAL PROTEIN 6.6 g/dL (6.3-8.2)
[2019-01-28 01:05] LABS: CREATINE KINASE MB 1.14 ng/mL (<4.55)
[2019-01-28 01:07] LABS: TROPONIN I < 0.012 ng/mL
--- NOTE | 2019-01-28 02:00 | RADIOLOGY REPORT (SQ) ---
EXAM DESCRIPTION: CT CHEST ANGIOGRAPHY WITHOUT THEN WITH IV CONTRAST COMPLETED DATE/TME: 01/27/2019 22:53 CLINICAL HISTORY: 28 years, Female, tachycardia, chest pain COMPARISON: CT chest 05/19/2017 TECHNIQUE: Axial images of the chest were performed utilizing intravenous contrast, with sagittal and coronal MIP images and sagittal and coronal reformatted images. Images stored on PACS. All CT scanners at this facility use dose modulation, iterative reconstruction, and/or weight based dosing when appropriate to reduce radiation dose to as low as reasonably achievable (ALARA). [facility]: Dose Right [facility]: CareDose [facility]: Dose Right [facility]: Teradose 4D [facility]: Anxa LIMITATIONS: None. FINDINGS: There is an area of consolidation in the left upper lobe. There are additional small patchy infiltrates in the remainder of the lungs bilaterally. Findings are compatible with acute pneumonia. There is bilateral hilar adenopathy, a finding that was also on the prior scan. There is considerable bilateral lower lobe bronchiectasis, with mucus filled bronchi. This finding was also on the prior scan. No evidence of pulmonary embolus. No evidence of aortic dissection. IMPRESSION: Acute bilateral pneumonia. Bilateral hilar adenopathy and bilateral lower lobe bronchiectasis, with mucus filled bronchi, findings that were also on the prior scan and are presumably chronic. TECHNICAL DOCUMENTATION: Quality ID # [id number]: Final reports with documentation of one or more dose reduction techniques (e.g., Automated exposure control, adjustment of the mA and/or kV according to patient size, use of iterative reconstruction technique) copyright 2011 [employer]- All Rights Reserved
[2019-01-28 02:13] LABS: APPEARANCE,URINE SLIGHTLY-CLOUDY; BILIRUBIN,URINE NEGATIVE (NEGATIVE); COLOR,URINE YELLOW; GLUCOSE, URINE NEGATIVE (NEGATIVE); KETONES,URINE NEGATIVE (NEGATIVE); LEUKOCYTE ESTERASE,URINE SMALL (NEGATIVE); NITRITE,URINE NEGATIVE (NEGATIVE); PROTEIN,URINE NEGATIVE (NEGATIVE); URINE SPECIFIC GRAVITY 1.045; UROBILINOGEN,URINE NEGATIVE mg/dL (<2.0)
[2019-01-28] MEDS ORDERED: CEFTRIAXONE 2 GM/D5W RTU 2 GM/50 ML RTUPB IV ONE (02:14)
[2019-01-28] MEDS ORDERED: RINGERS SOLUTION,LACTATED 1,000 ML IV ONE (02:15)
[2019-01-28] MEDS ORDERED: AZITHROMYCIN INJ 500 MG VIAL IV ONE (02:15)
[2019-01-28 02:25] LABS: URINE AMPHETAMINES SCREEN NEGATIVE; URINE BARBITURATES SCREEN NEGATIVE; URINE BENZODIAZEPINES SCREEN NEGATIVE; URINE COCAINE SCREEN NEGATIVE; URINE MARIJUANA (THC) SCREEN NEGATIVE; URINE METHADONE SCREEN NEGATIVE; URINE PHENCYCLIDINE SCREEN NEGATIVE
[2019-01-28] MEDS ORDERED: IPRATROPIUM/ALBUTEROL 0.5-2.5 MG/3 ML AMPUL NEB PRN (03:41)
[2019-01-28] MEDS ORDERED: ACETAMINOPHEN 325 MG TABLET PO PRN (03:41)
[2019-01-28] MEDS ORDERED: GUAIFENESIN SYRP 200 MG/10 ML UDC PO PRN (03:41)
--- NOTE | 2019-01-28 05:24 | PDOC H&P ---
History of Present Illness Admission Date/PCP: 01/28/19 04:14 Patient complains of: Chest pain History of Present Illness: ZEB PEACOKC is a 28 year old female with a past medical history of morbid obesity, pulmonary sarcoidosis, COPD, bronchitis and tobacco abuse. Patient presents with 6 hours of retrosternal chest pain radiating to the back sharp in nature exacerbated by deep breathing associated with nonproductive cough denying palpitations nausea vomiting or diaphoresis. In the emergency room she is found to have tachypnea, tachycardia and south adenopathy and pulmonary infiltrate by CTA. She started on empiric antibiotics and referred to the hospitalist for admission. She denies recent medication use. Past Medical History Pulmonary Medical History: Reports: Asthma - bronchitis, Bronchitis, Pneumonia Psychiatric Medical History: Reports: Tobacco Dependency Denies: Depression Infectious Medical History: Reports: HIV - POSITIVE HIV TEST ON LAST ADMISSION TO [facility] Social History Information Source: Patient, [facility] Records Smoking Status: Current Every Day Smoker Frequency of Alcohol Use: Rare Hx Recreational Drug Use: No Drugs: None Hx Prescription Drug Abuse: No - Advance Directive Resuscitation Status: Full Code Family History Family History: Other - Mother committed suicide, no history of granulomatous lung disease in the family Parental Family History Reviewed: Yes Children Family History Reviewed: Yes Sibling(s) Family History Reviewed.: Yes Medication/Allergy Home Medications: Cephalexin Monohydrate [Keflex 500 mg Capsule] 500 mg PO BID 5 Days capsule 02/16/18 Prednisone [Deltasone 20 mg Tablet] 3 tab PO DAILY 5 Days tablet 02/16/18 Prednisone [Deltasone 20 mg Tablet] 3 tab PO DAILY 5 Days tablet 07/15/18 Metoclopramide HCl [Reglan 10 mg Tablet] 1 - 2 tab PO ASDIR PRN #25 tablet 09/22/18 Allergies/Adverse Reactions: No Known Allergies Allergy (Verified 01/27/19 19:43) Review of Systems Constitutional: PRESENT: as per HPI, fatigue. ABSENT: chills, fever(s), headache(s), weight gain, weight loss Eyes: ABSENT: visual disturbances Ears: ABSENT: hearing changes Cardiovascular: PRESENT: dyspnea on exertion. ABSENT: chest pain, edema, orthropnea, palpitations Respiratory: PRESENT: as per HPI, cough, dyspnea. ABSENT: hemoptysis, sputum Gastrointestinal: ABSENT: abdominal pain, constipation, diarrhea, hematemesis, hematochezia, nausea, vomiting Genitourinary: ABSENT: dysuria, hematuria Musculoskeletal: ABSENT: joint swelling Integumentary: ABSENT: rash, wounds Neurological: ABSENT: abnormal gait, abnormal speech, confusion, dizziness, focal weakness, syncope Psychiatric: ABSENT: anxiety, depression, homidical ideation, suicidal ideation Endocrine: ABSENT: cold intolerance, heat intolerance, polydipsia, polyuria Hematologic/Lymphatic: ABSENT: easy bleeding, easy bruising Physical Exam Vital Signs: Temp Pulse Resp BP Pulse Ox 99.7 F 134 H 36 H 142/88 H 97 01/27/19 20:05 01/27/19 20:05 01/28/19 04:00 01/28/19 03:01 01/28/19 04:00 Intake & Output 01/26/19 01/27/19 01/28/19 11:59 11:59 11:59 Intake Total 1050 Balance 1050 Weight 104.2 kg General appearance: PRESENT: cooperative, mild distress, morbidly obese Head exam: PRESENT: atraumatic, normocephalic Eye exam: PRESENT: conjunctiva pink, EOMI, PERRLA. ABSENT: scleral icterus Ear exam: PRESENT: normal external ear exam Mouth exam: PRESENT: moist, tongue midline Neck exam: ABSENT: carotid bruit, JVD, lymphadenopathy, thyromegaly Respiratory exam: PRESENT: accessory muscle use, crackles, prolonged expiratory phas, symmetrical, tachypnea, wheezes Cardiovascular exam: PRESENT: RRR. ABSENT: diastolic murmur, rubs, systolic murmur Pulses: PRESENT: normal dorsalis pedis pul Vascular exam: PRESENT: normal capillary refill GI/Abdominal exam: PRESENT: normal bowel sounds, soft. ABSENT: distended, guarding, mass, organolmegaly, rebound, tenderness Rectal exam: PRESENT: deferred Extremities exam: PRESENT: full ROM. ABSENT: calf tenderness, clubbing, pedal edema Neurological exam: PRESENT: alert, awake, oriented to person, oriented to place, oriented to time, oriented to situation, CN II-XII grossly intact. ABSENT: motor sensory deficit Psychiatric exam: PRESENT: appropriate affect, normal mood. ABSENT: homicidal ideation, suicidal ideation Skin exam: PRESENT: dry, intact, warm. ABSENT: cyanosis, rash Results Laboratory Results: 01/27/19 21:02 01/28/19 00:26 01/27/19 01/27/19 01/27/19 21:02 21:02 21:02 WBC 13.2 H RBC 4.82 Hgb 14.2 Hct 41.9 MCV 87 MCH 29.5 MCHC 34.0 RDW 13.7 Plt Count 102 L Seg Neutrophils % 78.1 H Lymphocytes % 14.2 Monocytes % 5.1 Eosinophils % 2.3 Basophils % 0.3 Absolute Neutrophils 10.3 H Absolute Lymphocytes 1.9 Absolute Monocytes 0.7 Absolute Eosinophils 0.3 Absolute Basophils 0.0 Sodium Cancelled Potassium Cancelled Chloride Cancelled Carbon Dioxide Cancelled Anion Gap Cancelled BUN Cancelled Creatinine Cancelled Est GFR ( Amer) Cancelled Est GFR (Non-Af Amer) Cancelled Glucose Cancelled Calcium Cancelled Total Bilirubin Cancelled AST Cancelled ALT Cancelled Alkaline Phosphatase Cancelled C-Reactive Protein Total Protein Cancelled Albumin Cancelled TSH Serum HCG, Qual NEGATIVE Urine Color Urine Appearance Urine pH Ur Specific [place] Urine Protein Urine Glucose (UA) Urine Ketones Urine Blood Urine Nitrite Ur Leukocyte Esterase Urine WBC (Auto) Urine RBC (Auto) 01/27/19 01/27/19 01/28/19 23:28 23:28 00:26 WBC RBC Hgb Hct MCV MCH MCHC RDW Plt Count Seg Neutrophils % Lymphocytes % Monocytes % Eosinophils % Basophils % Absolute Neutrophils Absolute Lymphocytes Absolute Monocytes Absolute Eosinophils Absolute Basophils Sodium Cancelled Potassium Cancelled Chloride Cancelled Carbon Dioxide Cancelled Anion Gap Cancelled BUN Cancelled Creatinine Cancelled Est GFR ( Amer) Cancelled Est GFR (Non-Af Amer) Cancelled Glucose Cancelled Calcium Cancelled Total Bilirubin Cancelled AST Cancelled ALT Cancelled Alkaline Phosphatase Cancelled C-Reactive Protein Total Protein Cancelled Albumin Cancelled TSH Cancelled 1.19 Serum HCG, Qual Urine Color Urine Appearance Urine pH Ur Specific [place] Urine Protein Urine Glucose (UA) Urine Ketones Urine Blood Urine Nitrite Ur Leukocyte Esterase Urine WBC (Auto) Urine RBC (Auto) 01/28/19 01/28/19 01/28/19 00:26 00:26 01:55 WBC RBC Hgb Hct MCV MCH MCHC RDW Plt Count Seg Neutrophils % Lymphocytes % Monocytes % Eosinophils % Basophils % Absolute Neutrophils Absolute Lymphocytes Absolute Monocytes Absolute Eosinophils Absolute Basophils Sodium 136.5 L Potassium 3.4 L Chloride 102 Carbon Dioxide 25 Anion Gap 10 BUN 8 Creatinine 0.71 Est GFR ( Amer) > 60 Est GFR (Non-Af Amer) > 60 Glucose 101 Calcium 9.2 Total Bilirubin 0.4 AST 20 ALT 30 Alkaline Phosphatase 64 C-Reactive Protein 50.4 H Total Protein 6.6 Albumin 3.8 TSH Serum HCG, Qual Urine Color YELLOW Urine Appearance SLIGHTLY-CLOUDY Urine pH 5.0 Ur Specific [place] 1.045 Urine Protein NEGATIVE Urine Glucose (UA) NEGATIVE Urine Ketones NEGATIVE Urine Blood NEGATIVE Urine Nitrite NEGATIVE Ur Leukocyte Esterase SMALL H Urine WBC (Auto) 18 Urine RBC (Auto) 1 01/27/19 01/27/19 01/27/19 21:02 21:02 23:28 Creatine Kinase Cancelled Cancelled CK-MB (CK-2) Cancelled Troponin I Cancelled 01/27/19 01/28/19 01/28/19 23:28 00:26 00:26 Creatine Kinase 228 H CK-MB (CK-2) Cancelled 1.14 Troponin I Cancelled < 0.012 Impressions: Chest X-Ray 01/27/19 20:34 IMPRESSION: 1. No acute cardiothoracic abnormality. Chest/Abdomen CTA 01/27/19 22:53 IMPRESSION: Acute bilateral pneumonia. Bilateral hilar adenopathy and bilateral lower lobe bronchiectasis, with mucus filled bronchi, findings that were also on the prior scan and are presumably chronic. TECHNICAL DOCUMENTATION: Quality ID # 436: Final reports with documentation of one or more dose reduction techniques (e.g., Automated exposure control, adjustment of the mA and/or kV according to patient size, use of iterative reconstruction technique) copyright 2011 [employer]- All Rights Reserved Assessment and Plan - Diagnosis (1) Sarcoidosis of lung Is this a current diagnosis for this admission?: Yes Plan: Presentation strongly suggests sarcoid flare secondary to noncompliance complicated by morbid obesity and tobacco. Stress dose steroids initiated, follow-up ESR, pulmonology consult. (2) Pneumonia Qualifiers: Pneumonia type: due to unspecified organism Laterality: left Lung loc ation: upper lobe of lung Qualified Code(s): J18.1 - Lobar pneumonia, unspecified organism Is this a current diagnosis for this admission?: Yes Plan: Sarcoidosis flare versus pneumonia complicated by morbid obesity, COPD and tobacco. Empiric antibiotics initiated, follow-up CBC and blood culture (3) Tachycardia Is this a current diagnosis for this admission?: Yes Plan: Secondary to #1, reevaluate after glucocorticoid. (4) Morbid obesity Is this a current diagnosis for this admission?: Yes Plan: Morbid obesity will evaluate for metabolic cause with evaluation of thyroid function and dietitian consultation
[2019-01-28] MEDS: METHYLPREDNISOLONE INJ 125 MG/2 ML SDV IV SCH ×3 (05:25→21:29)
[2019-01-28] MEDS: HEPARIN SOD (PORCINE) 5,000 UNIT/ML 1 ML SYRINGE SUBCUT SCH ×3 (05:27→21:24)
[2019-01-28] MEDS: CHLORPHENIRAMINE MALEATE 4 MG TABLET PO SCH ×3 (05:30→17:29)
[2019-01-28] MEDS: KETOROLAC TROMETHAMINE INJ/PF 30 MG/1 ML SDV IV PRN ×2 (05:40→19:44)
[2019-01-28] MEDS: IPRATROPIUM/ALBUTEROL 0.5-2.5 MG/3 ML AMPUL NEB SCH ×2 (08:01→15:37)
[2019-01-28] MEDS ORDERED: AZITHROMYCIN 500 MG in DEXTROSE 5%-WATER 250 ML IV SCH ×2 (10:00→22:00)
[2019-01-28] MEDS ORDERED: CEFTRIAXONE 1 GM/D5W RTU 50 ML IV SCH (10:00)
--- NOTE | 2019-01-28 10:24 | EKG REPORT ---
SEVERITY:- BORDERLINE ECG - SINUS TACHYCARDIA BORDERLINE T ABNORMALITIES, ANTERIOR LEADS : Confirmed by: Marisol Gallego 28-Jan-2019 10:22:50
[2019-01-28] MEDS: CEFTRIAXONE SODIUM 1,000 MG in DEXTROSE 5%-WATER 50 ML IV SCH (10:44)
[2019-01-28] MEDS: FLUTICASONE NASAL SPRAY 50 MCG/SPRY 120 SPRAY/16 GM NASL SCH ×2 (10:44→21:29)
--- NOTE | 2019-01-28 19:01 | Progress Note ---
Provider Note Provider Note: Patient admitted early this morning for a likely sarcoidosis flare-up with pneumonia. Upon encounter, she appears comfortable on room air, texting. She does complain of mild SOB which is not her baseline. Pulmonology has seen patient and has ordered a bedside spirometry. She is not able to participate when RT attempted to do testing as she complains of pleuritic chest pain and report she is not able to take a deep breath. Will add lidocaine patch and Toradol prn. Called by RN at 5:40 PM that patient wants to leave AMA. Talked with patient. She says she needs to take care of her kids at home and wants to go home now. Explained risks of going against medical advice in length and she decided to stay. Continue antibiotics, steroids and breathing treatments. Will follow-up with further recommendations from pulmonology.
[2019-01-28] MEDS ORDERED: LIDOCAINE 5% (700 MG) TRANSDERMAL ADH..PATCH TP SCH (20:00)
[2019-01-29] MEDS: CHLORPHENIRAMINE MALEATE 4 MG TABLET PO SCH (00:02)
[2019-01-29] MEDS: IPRATROPIUM/ALBUTEROL 0.5-2.5 MG/3 ML AMPUL NEB SCH ×2 (00:49→07:56)
[2019-01-29 05:20] LABS: ANION GAP 14 (5-19); BLOOD UREA NITROGEN 13 mg/dL (7-20); CALCIUM 9.8 mg/dL (8.4-10.2); CARBON DIOXIDE 19 mmol/L (22-30); CHLORIDE 107 mmol/L (98-107); GLUCOSE 205 mg/dL (75-110); POTASSIUM 3.5 mmol/L (3.6-5.0); SODIUM 139.5 mmol/L (137-145)
[2019-01-29] MEDS ORDERED: CEFTRIAXONE 1 GM/D5W RTU 1 GM/50 ML RTUPB IV SCH (06:00)
[2019-01-29] MEDS: HEPARIN SOD (PORCINE) 5,000 UNIT/ML 1 ML SYRINGE SUBCUT SCH ×2 (06:24→14:21)
[2019-01-29] MEDS: METHYLPREDNISOLONE INJ 125 MG/2 ML SDV IV SCH (06:24)
[2019-01-29 08:58] LABS: HEMATOCRIT 37.5 % (36.0-47.0); HEMOGLOBIN 12.7 g/dL (12.0-15.5); MEAN CORPUSCULAR HGB CONC 33.9 g/dL (32.0-36.0); MEAN CORPUSCULAR VOLUME 86 fl (80-97); RED BLOOD COUNT 4.37 10^6/uL (3.72-5.28); RED CELL DISTRIBUTION WIDTH 13.9 % (11.5-14.0); WHITE BLOOD COUNT 24.7 10^3/uL (4.0-10.5)
[2019-01-29 09:31] LABS: ABSOLUTE NEUTROPHILS# (MANUAL) 22.7 10^3/uL (1.7-8.2); BASOPHILS % (MANUAL) 0 % (0-2); EOSINOPHILS % (MANUAL) 0 % (0-6); LYMPHOCYTES % (MANUAL) 4 % (13-45); MONOCYTES % (MANUAL) 4 % (3-13); PLATELET COMMENT ADEQUATE; RBC MORPHOLOGY COMMENT NORMO-CYTIC/CHROMIC; SEGMENTED NEUTROPHILS % (MAN) 92 % (42-78); TOTAL CELLS COUNTED 100
[2019-01-29 09:32] LABS: PLATELET LARGE PRESENT
[2019-01-29 09:33] LABS: PLATELET COUNT 260 10^3/uL (150-450)
[2019-01-29] MEDS ORDERED: ALBUTEROL SULFATE HFA (90 MCG/PUFF) 200 PUFF/8.5 GM MDI IH PRN (10:20)
[2019-01-29] MEDS ORDERED: ALBUTEROL SULFATE HFA (90 MCG/PUFF) 200 PUFF/8.5 GM MDI IH ONE (11:00)
[2019-01-29] MEDS: FLUTICASONE NASAL SPRAY 50 MCG/SPRY 120 SPRAY/16 GM NASL SCH (11:10)
[2019-01-29] MEDS: CEFTRIAXONE SODIUM 1,000 MG in DEXTROSE 5%-WATER 50 ML IV SCH (11:11)
[2019-01-29] MEDS: KETOROLAC TROMETHAMINE INJ/PF 30 MG/1 ML SDV IV PRN (11:25)
[2019-01-29 13:24] VITALS: BP 102/59
[2019-01-30] MEDS ORDERED: PREDNISONE 20 MG TABLET PO SCH (10:00)
--- NOTE | 2019-02-02 11:36 | PDOC DISCHARGE SUMMARY ---
General - Admit/Disc Date/PCP Admission Date/Primary Care Provider: 01/28/19 15:39 Discharge Date: 01/29/19 - Discharge Diagnosis (1) Sarcoidosis of lung Is this a current diagnosis for this admission?: Yes Summary: Presentation strongly suggests sarcoid flare secondary to noncompliance complicated by morbid obesity and tobacco. ESR is nml, CRP elevated to 164 CTA Chest demonstrated bilateral hilar adenopathy, bilateral lower lobe bronchiectasis with mucus filled bronchi (chronic). Negative for PE. She was admitted to [facility] on continuous cardiac telemetry. She was provided supplemental oxygen, scheduled and as needed nebulizer treatments, and IV Solu-Medrol. Pulmonology was consulted and PFT was ordered; pt was unable to complete testing. Her symptoms rapidly improved and on day of discharge the patient it insisting on discharge to home. She is currently in stable condition, tachycardia has resolve,d lung sounds significantly improved, and she is ambulatory on room air without increased work of breathing. She is advised to follow up with her primary care provider within 1 week. She is strongly encouraged to establish with a application support analyst. She is provided prescriptions for a rescue inhaler, flonase, and daily prednisone. STOP smoking. A referral to the [facility] Transitions to Wellness program is initiated. She is instructed to return to the emergency department as needed for concerning symptoms. (2) Pneumonia Is this a current diagnosis for this admission?: Yes Summary: Ruled out. Patient was admitted with respiratory distress secondary to sarcoidosis flare. CTA chest revealed bilateral PNA. However, patient's symptoms rapidly resolved with use of steroid therapy. She remains afebrile and without a cough. She is now ambulatory on room air. Blood and sputum cultures were never obtained. WBC are elevated; this is attributed to high dose steroid therapy. She is advised to follow up with her PCP within 1 week or sooner if she develops worsening respiratory symptoms or fever. No indications for antibiotic therapy at this time. (3) Tachycardia Is this a current diagnosis for this admission?: Yes Summary: Resolved. Multifactorial secondary to Sarcoidosis flare and use of phentermine for weight loss. (4) Morbid obesity Is this a current diagnosis for this admission?: Yes Summary: Dietary discretion and lifestyle modification is advised. Recommend discussing weight and risks/benefits of phentermine with PCP prior to resume weight loss aid. (5) Pleurisy Is this a current diagnosis for this admission?: Yes Summary: Secondary to Sarcoidosis flare. Naprosyn and tramadol as needed for pain. Encouraged nonpharmaclogical interventions (ice/heat); discharge with incentive spirometer and flutter valve to continue use at home. - Additional Information Resuscitation Status: Full Code Discharge Diet: Regular Discharge Activity: Activity As Tolerated, Balance Activity w/Rest Prescriptions: Albuterol Sulfate [Proair HFA Inhalation Aerosol 8.5 gm MDI] 2 puff IH Q6HP PRN #1 hfa.[email or web address] PRN Reason: shortness Fluticasone Propionate [Flonase Nasal Kimberly 50 Mcg/Kimberly 16 gm] 2 spray NASL Q12 #1 spray.pump Naproxen [EC-Naprosyn] 500 mg PO Q12HP PRN #20 tablet. PRN Reason: chest wall/back pain Prednisone [Deltasone 20 mg Tablet] 30 mg PO DAILY #45 tablet Tramadol HCl [Ultram 50 mg Tablet] 50 mg PO Q6HP PRN #20 tablet PRN Reason: Transition To Wellness [Transition to Wellness Program] 1 each ASDIR PRN #1 each PRN Reason: Home Medications: Acetaminophen [Tylenol 325 mg Tablet] 650 mg PO Q4HP PRN tablet 01/29/19 Albuterol Sulfate [Proair HFA Inhalation Aerosol 8.5 gm MDI] 2 puff IH Q6HP PRN #1 hfa.aer.ad 01/29/19 Fluticasone Propionate [Flonase Nasal Kimberly 50 Mcg/Kimberly 16 gm] 2 spray NASL Q12 #1 spray.pump 01/29/19 Guaifenesin [Robitussin Syrup 200 mg/10 ml Ud Cup] 200 mg PO Q4HP PRN udc 01/29/19 Naproxen [EC-Naprosyn] 500 mg PO Q12HP PRN #20 tablet. 01/29/19 Prednisone [Deltasone 20 mg Tablet] 30 mg PO DAILY #45 tablet 01/29/19 Tramadol HCl [Ultram 50 mg Tablet] 50 mg PO Q6HP PRN #20 tablet 01/29/19 Transition To Wellness [Transition to Wellness Program] 1 each ASDIR PRN #1 each 01/29/19 History of Present Illness History of Present Illness: Per H&P by Dr. Yuan: ZEB PEACOCK is a 28 year old female with a past medical history of morbid obesity, pulmonary sarcoidosis, COPD, bronchitis and tobacco abuse. Patient presents with 6 hours of retrosternal chest pain radiating to the back sharp in nature exacerbated by deep breathing associated with nonproductive cough denying palpitations nausea vomiting or diaphoresis. In the emergency room she is found to have tachypnea, tachycardia and south adenopathy and pulmonary infiltrate by CTA. She started on empiric antibiotics and referred to the hospitalist for admission. She denies recent medication use. Physical Exam Vital Signs: Temp Pulse Resp BP Pulse Ox 98.2 F 98 14 102/59 L 98 01/29/19 13:09 01/29/19 14:00 01/29/19 13:09 01/29/19 13:09 01/29/19 13:09 Pulse Oximeter Nocturnal Start: 01/28/19 20:00 Freq: RTQ4 Status: Complete Protocol: Document 01/29/19 04:00 [facility] (Rec: 01/29/19 04:56 [facility] [id number]) Nocturnal Pulse Oximetry Equipment Usage Equipment Discontinued Continuous SpO2 Machine # 1 General appearance: PRESENT: no acute distress, obese, well-developed, well- nourished Head exam: PRESENT: atraumatic, normocephalic Eye exam: PRESENT: conjunctiva pink, EOMI, PERRLA. ABSENT: scleral icterus Ear exam: PRESENT: normal external ear exam Mouth exam: PRESENT: moist, tongue midline Neck exam: ABSENT: carotid bruit, JVD, lymphadenopathy, thyromegaly Respiratory exam: PRESENT: clear to auscultation sue, decreased breath sounds - bibasilar, prolonged expiratory phas, symmetrical, unlabored. ABSENT: rales, rhonchi, wheezes Cardiovascular exam: PRESENT: RRR. ABSENT: diastolic murmur, rubs, systolic murmur Pulses: PRESENT: normal dorsalis pedis pul Vascular exam: PRESENT: normal capillary refill GI/Abdominal exam: PRESENT: normal bowel sounds, soft. ABSENT: distended, gua rding, mass, organolmegaly, rebound, tenderness Rectal exam: PRESENT: deferred Extremities exam: PRESENT: full ROM. ABSENT: calf tenderness, clubbing, pedal edema Neurological exam: PRESENT: alert, awake, oriented to person, oriented to place, oriented to time, oriented to situation, CN II-XII grossly intact. ABSENT: tip r sensory deficit Psychiatric exam: PRESENT: appropriate affect, normal mood. ABSENT: homicidal ideation, suicidal ideation Skin exam: PRESENT: dry, intact, warm. ABSENT: cyanosis, rash Results Laboratory Results: 01/29/19 07:56 01/29/19 03:55 01/27/19 01/27/19 01/27/19 21:02 21:02 23:28 Creatine Kinase Cancelled Cancelled CK-MB (CK-2) Cancelled Troponin I Cancelled 01/27/19 01/28/19 01/28/19 23:28 00:26 00:26 Creatine Kinase 228 H CK-MB (CK-2) Cancelled 1.14 Troponin I Cancelled < 0.012 Impressions: Chest X-Ray 01/27/19 20:34 IMPRESSION: 1. No acute cardiothoracic abnormality. Chest/Abdomen CTA 01/27/19 22:53 IMPRESSION: Acute bilateral pneumonia. Bilateral hilar adenopathy and bilateral lower lobe bronchiectasis, with mucus filled bronchi, findings that were also on the prior scan and are presumably chronic. TECHNICAL DOCUMENTATION: Quality ID # 436: Final reports with documentation of one or more dose reduction techniques (e.g., Automated exposure control, adjustment of the mA and/or kV according to patient size, use of iterative reconstruction technique) copyright 2011 [employer]- All Rights Reserved Qualifiers - * PATIENT BEING DISCHARGED WITH ANY OF THE FOLLOWING DIAGNOSIS: No Plan Discharge Plan: Follow up with primary care provider within 1 week. Recommend establishing with a application support analyst. Avoid respiratory triggers (dust, pollen, pet dander, smoke) Continue daily prednisone therapy. Return to the emergency room as needed for concerning symptoms. Time Spent: Less than 30 Minutes
== END 2019-01-29 15:55 | disposition home or self-care (01) | DRG 198 ==
LOC: ER 19:42 → EH 01-28 04:14 → INTOOBSV 01-28 04:14 → 3N 01-28 06:24 → OBSVTOIN 01-28 15:39
PROVIDERS: ADMIT Internal Medicine; ATTEND Internal Medicine
DX: D86.0 Sarcoidosis of lung (principal); E66.01 Morbid (severe) obesity due to excess calories; R00.0 Tachycardia, unspecified; T50.5X5A Adverse effect of appetite depressants, initial encounter; R09.1 Pleurisy; J44.9 Chronic obstructive pulmonary disease, unspecified; F17.210 Nicotine dependence, cigarettes, uncomplicated; Z21 Asymptomatic human immunodeficiency virus [HIV] infection status
CPT/HCPCS: 36415; 71046; 71275; 80048; 80053; 80307; 81001; 82550; 82553; 83605; 84443; 84484; 84703; 85025; 85652; 86140; 93005; 93010; 94640; 94667; 94762; 96361; 96365; 96368; 96375; 99285; J0456; J0696; J1644; J1885; J2405; J2930; J3010; J3490; J7030; J7060; J7120; J7620

== ENCOUNTER → 2019-02-04 | Outpatient (CLI) | payer OTHER ==
[2019-02-04 16:59] LABS: ABSOLUTE EOSINOPHILS # (AUTO) 0.6 10^3/uL (0.0-0.6); ABSOLUTE LYMPHOCYTES (AUTO) 4.1 10^3/uL (0.5-4.7); ABSOLUTE MONOCYTES (AUTO) 0.5 10^3/uL (0.1-1.4); ABSOLUTE NEUT (AUTO) 3.4 10^3/uL (1.7-8.2); BASOPHILS % (AUTO) 0.3 % (0-2); EOSINOPHILS % (AUTO) 6.9 % (0-6); HEMATOCRIT 37.6 % (36.0-47.0); LYMPHOCYTES % (AUTO) 47.4 % (13-45); MEAN CORPUSCULAR HEMOGLOBIN 29.1 pg (27.0-33.4); MEAN CORPUSCULAR HGB CONC 34.5 g/dL (32.0-36.0); MEAN CORPUSCULAR VOLUME 84 fl (80-97); MONOCYTES % (AUTO) 5.6 % (3-13); PLATELET COUNT 329 10^3/uL (150-450); RED BLOOD COUNT 4.45 10^6/uL (3.72-5.28); RED CELL DISTRIBUTION WIDTH 13.5 % (11.5-14.0); SEGMENTED NEUTROPHILS % (AUTO) 39.8 % (42-78); TOTAL CELLS COUNTED % (AUTO) 100 %; WHITE BLOOD COUNT 8.7 10^3/uL (4.0-10.5)
[2019-02-04 17:18] LABS: ALANINE AMINOTRANSFERASE 20 U/L (9-52); ALBUMIN 3.6 g/dL (3.5-5.0); ALKALINE PHOSPHATASE 62 U/L (38-126); ANION GAP 9 (5-19); ASPARTATE AMINO TRANSFERASE 17 U/L (14-36); BILIRUBIN,DIRECT 0.2 mg/dL (0.0-0.4); BILIRUBIN,TOTAL 0.2 mg/dL (0.2-1.3); BLOOD UREA NITROGEN 10 mg/dL (7-20); CALCIUM 9.5 mg/dL (8.4-10.2); CARBON DIOXIDE 27 mmol/L (22-30); CHLORIDE 104 mmol/L (98-107); GLUCOSE 88 mg/dL (75-110); POTASSIUM 3.9 mmol/L (3.6-5.0); SODIUM 139.8 mmol/L (137-145); TOTAL PROTEIN 6.5 g/dL (6.3-8.2)
== END ==
LOC: OD 15:55
DX: D86.9 Sarcoidosis, unspecified (principal)
CPT/HCPCS: 36415; 80053; 83036; 85025; 86701; 86702

== ENCOUNTER 2019-03-01 09:25 | Emergency (ER) | payer SELFPAY ==
[2019-03-01 09:36] VITALS: BP 117/75
[2019-03-01] MEDS ORDERED: IPRATROPIUM/ALBUTEROL 0.5-2.5 MG/3 ML AMPUL NEB ONE (10:05)
[2019-03-01] MEDS ORDERED: PREDNISONE 20 MG TABLET PO ONE (10:05)
--- NOTE | 2019-03-01 10:09 | ER Document Report ---
ED Respiratory Problem - General Chief Complaint: Shortness Of Breath Stated Complaint: DIFFICULTY BREATHING Time Seen by Provider: 03/01/19 09:59 Primary Care Provider: [facility] [NO LOCAL MD] - Follow up as needed Mode of Arrival: Ambulatory Information source: Patient Notes: 28-year-old female presented to ED for cough cold congestion shortness of breath pain in the ribs for couple days. She does have a significant inspiratory expiratory wheeze. States she does have a history of bronchitis pneumonia and asthma. States she had a bronchoscopy in the past. She does smoke 1 cigarette a day does not drink or do any drugs. Works for [employer] and lives with her kids. Patient is alert oriented respirations regular and with a cough. Patient is afebrile at this time. TRAVEL OUTSIDE OF THE [place] IN LAST 30 DAYS: No - HPI Patient complains to provider of: Asthma, Cough, Short of breath Onset: Other - Several days Duration: Continuous Initiating Event: URI Quality of pain: Sharp Severity: Severe Pain Level: 5 Context: Hx asthma, Smoker Short of Breath: Mild Cough: Nonproductive Sputum amount: None Associated symptoms: Congestion, Cough, PND, Runny nose, Sinus pain/pressure, Short of breath, Wheezing Similar symptoms previously: Yes Recently seen / treated by doctor: No - Related Data Allergies/Adverse Reactions: No Known Allergies Allergy (Verified 01/27/19 19:43) Past Medical History - General Information source: Patient - Social History Smoking Status: Current Every Day Smoker Cigarette use (# per day): Yes - 1 cigarette a day Smoking Education Provided: Yes - 4 minutes Frequency of alcohol use: None Drug Abuse: None Lives with: Family Family History: Reviewed & Not Pertinent, Other - Mother committed suicide, no history of granulomatous lung disease in the family - Past Medical History Cardiac Medical History: Reports: None Pulmonary Medical History: Reports: Hx Asthma - bronchitis, Hx Bronchitis, Hx Pneumonia EENT Medical History: Reports: None Neurological Medical History: Reports: None Endocrine Medical History: Reports: None Renal/ Medical History: Reports: None Malignancy Medical History: Reports: Hx Lymphoma - POSSIBLE, HAS NOT FOLLOWED UP ADVISED. GI Medical History: Reports: None Musculoskeletal Medical History: Reports None Skin Medical History: Reports None Psychiatric Medical History: Reports: Hx Depression Traumatic Medical History: Reports: None Infectious Medical History: Reports: Hx HIV - POSITIVE HIV TEST ON LAST ADMISSION TO [facility] Past Surgical History: Reports: Other - Bronchoscopy - Immunizations Immunizations up to date: No Hx Diphtheria, Pertussis, Tetanus Vaccination: Yes Hx Pneumococcal Vaccination: 10/20/14 Review of Systems - Review of Systems Constitutional: Recent illness EENT: Nose congestion, Nose discharge, Sinus pressure, Sinus discharge Cardiovascular: No symptoms reported Respiratory: Cough, Short of breath, Wheezing Gastrointestinal: No symptoms reported Genitourinary: No symptoms reported Female Genitourinary: No symptoms reported Musculoskeletal: No symptoms reported Skin: No symptoms reported Hematologic/Lymphatic: No symptoms reported Neurological/Psychological: No symptoms reported Physical Exam - Vital signs Vitals: Temp Pulse Resp BP Pulse Ox 98.4 F 91 20 117/75 97 03/01/19 09:33 03/01/19 09:33 03/01/19 09:33 03/01/19 09:33 03/01/19 09:33 Interpretation: Normal - General General appearance: Appears well, Alert - HEENT Head: Normocephalic, Atraumatic Eyes: Normal Pupils: PERRL Ears: Normal External canal: Normal Tympanic membrane: Normal Sinus: Normal Nasal: Purulent discharge, Swelling Mouth/Lips: Normal Mucous membranes: Normal Pharynx: Post nasal drainage Neck: Normal - Respiratory Respiratory status: No respiratory distress. No: Respiratory distress, Tachypnea Chest status: Nontender Breath sounds: Rhonchi, Wheezing Chest palpation: Normal - Cardiovascular Rhythm: Regular Heart sounds: Normal auscultation Murmur: No - Abdominal Inspection: Normal Distension: No distension Bowel sounds: Normal Tenderness: Nontender Organomegaly: No organomegaly - Back Back: Normal, Nontender - Extremities General upper extremity: Normal inspection, Nontender, Normal color, Normal ROM, Normal temperature General lower extremity: Normal inspection, Nontender, Normal color, Normal ROM, Normal temperature, Normal weight bearing. No: Rosaura's sign - Neurological Neuro grossly intact: Yes Cognition: Normal Orientation: AAOx4 [place] Coma Scale Eye Opening: Spontaneous [place] Coma Scale Verbal: Oriented [place] Coma Scale Motor: Obeys Commands [place] Coma Scale Total: 15 Speech: Normal Motor strength normal: LUE, RUE, LLE, RLE Sensory: Normal - Psychological Associated symptoms: Normal affect, Normal mood - Skin Skin Temperature: Warm Skin Moisture: Dry Skin Color: Normal Course - Re-evaluation Re-evalutation: 03/01/19 20:05 Patient left before her x-ray was completed. She was called multiple times that she was not in the emergency room. Patient eloped - Vital Signs Vital signs: Temp Pulse Resp BP Pulse Ox 98.4 F 91 20 117/75 97 03/01/19 09:33 03/01/19 09:33 03/01/19 09:33 03/01/19 09:33 03/01/19 09:33 Discharge - Discharge Clinical Impression: URI (upper respiratory infection) Qualifiers: URI type: unspecified viral URI Qualified Code(s): J06.9 - Acute upper respiratory infection, unspecified Disposition: ELOPED Referrals: [facility] [NO [facility]AL MD] - Follow up as needed
[2019-03-01] MEDS: ALBUTEROL SULFATE 0.083% NEB 2.5 MG/3 ML AMPUL NEB SCH (10:17)
== END 2019-03-01 11:32 | disposition left against medical advice (07) ==
LOC: ER 09:25
DX: J06.9 Acute upper respiratory infection, unspecified (principal); B97.89 Other viral agents as the cause of diseases classified elsewhere; J45.909 Unspecified asthma, uncomplicated; R06.02 Shortness of breath; R05 Cough; R07.81 Pleurodynia; R09.82 Postnasal drip; R09.81 Nasal congestion; J34.89 Other specified disorders of nose and nasal sinuses; F17.210 Nicotine dependence, cigarettes, uncomplicated; Z71.6 Tobacco abuse counseling; Z87.01 Personal history of pneumonia (recurrent); Z21 Asymptomatic human immunodeficiency virus [HIV] infection status; Z53.20 Procedure and treatment not carried out because of patient's decision for unspecified reasons
CPT/HCPCS: 99406; 94640 ×2; 99281; J7512; J7620

== ENCOUNTER 2019-08-22 23:38 | Emergency (ER) | payer SELFPAY ==
[2019-08-23] MEDS ORDERED: IPRATROPIUM/ALBUTEROL 0.5-2.5 MG/3 ML AMPUL NEB ONE (00:31)
[2019-08-23] MEDS ORDERED: PREDNISONE 20 MG TABLET PO ONE (00:31)
[2019-08-23] MEDS ORDERED: ALBUTEROL SULFATE 0.083% NEB 2.5 MG/3 ML AMPUL NEB ONE (00:31)
[2019-08-23] MEDS ORDERED: VALACYCLOVIR HCL 500 MG TABLET PO ONE (00:50)
[2019-08-23] MEDS ORDERED: AZITHROMYCIN 250 MG TABLET PO ONE (00:51)
[2019-08-23] MEDS ORDERED: CEFTRIAXONE INJ 250 MG VIAL IM ONE (00:51)
[2019-08-23] MEDS ORDERED: PROMETHAZINE HCL 25 MG TABLET PO ONE (00:52)
[2019-08-23] MEDS ORDERED: LIDOCAINE 1% INJ (10 MG/ML) 10 ML MDV INJ ONE (00:52)
--- NOTE | 2019-08-23 00:53 | ER Document Report ---
HPI - HPI Time Seen by Provider: 08/23/19 00:15 Onset: This afternoon Onset/Duration: Gradual Pain Level: 0 Context: Patient presents complaining of vaginal itching. Patient reports having intercourse with some that may have been exposed to herpes and she would like to be tested for this today. Patient also reports wheezing for the past several days. Patient denies any fever. Patient denies any urinary symptoms. No concern about . Associated Symptoms: Nonproductive cough, Other - Vaginal itching. denies: Chest pain, Fever, Vomiting Exacerbated by: Denies Relieved by: Denies Similar symptoms previously: No Recently seen / treated by doctor: No - ROS ROS below otherwise negative: Yes Systems Reviewed and Negative: Yes All other systems reviewed and negative - CONSTITUTIONAL Constitutional: DENIES: Fever, Chills - RESPIRATORY Respiratory: REPORTS: Coughing - GASTROINTESTINAL Gastrointestinal: DENIES: Abdominal Pain, Nausea, Patient vomiting - REPRODUCTIVE LMP: mid july Reproductive: DENIES: : Notes: Vaginal itching - DERM Skin Color: Normal Skin Problems: None Past Medical History - General Information source: Patient - Social History Smoking Status: Current Every Day Smoker Smoking Education Provided: Yes Frequency of alcohol use: None Drug Abuse: None Occupation: Foodservice Family History: Reviewed & Not Pertinent, Other - Mother committed suicide, no history of granulomatous lung disease in the family Patient has suicidal ideation: No Patient has homicidal ideation: No Pulmonary Medical History: Reports: Hx Asthma - bronchitis, Hx Bronchitis, Hx Pneumonia Renal/ Medical History: Denies: Hx Peritoneal Dialysis Psychiatric Medical History: Reports: Hx Depression Infectious Medical History: Reports: Hx HIV - POSITIVE HIV TEST ON LAST ADMISSION TO [facility] Past Surgical History: Reports: Other - Bronchoscopy - Immunizations Immunizations up to date: No Hx Diphtheria, Pertussis, Tetanus Vaccination: Yes Hx Pneumococcal Vaccination: 10/20/14 Vertical Provider Document - CONSTITUTIONAL Agree With Documented VS: Yes Exam Limitations: No Limitations General Appearance: WD/WN, No Apparent Distress - INFECTION CONTROL TRAVEL OUTSIDE OF THE [place] IN LAST 30 DAYS: No - HEENT HEENT: Atraumatic, Normal ENT Exam, Normocephalic - NECK Neck: Normal Inspection, Supple. negative: Lymphadenopathy-Left, Lymphadenopathy-Right - RESPIRATORY Respiratory: No Respiratory Distress, Chest Non-Tender, Wheezing - CARDIOVASCULAR Cardiovascular: Regular Rate, Regular Rhythm, No Murmur - GI/ABDOMEN Gastrointestinal: Abdomen Soft, Abdomen Non-Tender, No Organomegaly, Normal Bowel Sounds - REPRODUCTIVE Female Genitalia: Abnormal Inspection - Yellow vaginal discharge, nontender shallow small ulceration to the 6 o'clock position of the vaginal introitus, no inguinal lymphadenopathy. No cervical motion tenderness. negative: CMT, Adnexal Pain-Right, Adnexal Pain-Left - BACK Back: Normal Inspection. negative: CVA Tenderness-Right, CVA Tenderness-Left - MUSCULOSKELETAL/EXTREMETIES Musculoskeletal/Extremeties: MAEW, FROM - NEURO Level of Consciousness: Awake, Alert, Appropriate Motor/Sensory: No Motor Deficit - DERM Integumentary: Warm, Dry Course - Re-evaluation Re-evalutation: 08/23/19 Patient's respirations even unlabored, patient with increased air movement and decreased wheezing. No concern for pneumonia at this time. Patient with a single ulceration to the perineum, herpes culture has been sent. Patient treated prophylactically for gonorrhea and chlamydia at this time. Discussed safe sex practices with patient. - Vital Signs Vital signs: Temp Pulse Resp BP Pulse Ox 98.1 F 92 20 143/73 H 99 08/22/19 23:42 08/22/19 23:42 08/22/19 23:42 08/22/19 23:42 08/22/19 23:42 - Laboratory Laboratory results interpreted by me: 08/23/19 01:44 Labs- Entire Visit 08/23/19 00:45 Epi Cells (Wet Prep) 3+ EPITHELIALS SEEN Bacteria (Wet Prep) 4+ BACTERIA SEEN Trichomonas (Wet Prep) NO TRICHOMONAS SEEN Vaginal WBC 4+ WBCS SEEN Vaginal RBC NO RBCS SEEN Vaginal Yeast NO YEAST SEEN 08/23/19 03:07 Labs- Entire Visit 08/23/19 08/23/19 00:45 00:45 Epi Cells (Wet Prep) 3+ EPITHELIALS SEEN Bacteria (Wet Prep) 4+ BACTERIA SEEN Trichomonas (Wet Prep) NO TRICHOMONAS SEEN Vaginal WBC 4+ WBCS SEEN Vaginal RBC NO RBCS SEEN Vaginal Yeast NO YEAST SEEN Chlamydia DNA (PCR) NOT DETECTED N.gonorrhoeae DNA (PCR) NOT DETECTED Discharge - Discharge Clinical Impression: Vaginal discharge, Bacterial vaginosis, Genital ulcer, female Asthma exacerbation Qualifiers: Asthma severity: unspecified severity Asthma persistence: unspecified Qualified Code(s): J45.901 - Unspecified asthma with (acute) exacerbation Condition: Stable Disposition: HOME, SELF-CARE Instructions: Asthma ([facility]), Azithromycin ([facility]), Inhaled Bronchodilators ([facility]), Metronidazole ([facility]), Vaginosis, Bacterial ([facility]) Additional Instructions: Return immediately for any new or worsening symptoms Followup with your primary care provider, call tomorrow to make a followup appo intment Culture is pending, will call if you need any different treatment Prescriptions: Prednisone [Deltasone 20 mg Tablet] 3 tab PO DAILY 4 Days tablet Metronidazole [Flagyl 500 mg Tablet] 500 mg PO BID #14 tablet Nystatin [Mycostatin Cream 15 gm] 1 applic TP BID #30 gm Valacyclovir HCl [Valacyclovir] 1,000 mg PO TID #21 tablet Forms: Smoking Cessation Education, Return to Work Referrals: [facility] [Provider Group] - Follow up as needed
[2019-08-23 01:09] LABS: BACTERIA (WET MOUNT) 4+ BACTERIA SEEN; EPITHELIALS (WET MOUNT) 3+ EPITHELIALS SEEN; RBCS (WET MOUNT) NO RBCS SEEN; T.VAGINALIS (WET MOUNT) NO TRICHOMONAS SEEN; WBCS (WET MOUNT) 4+ WBCS SEEN; YEAST (WET MOUNT) NO YEAST SEEN
[2019-08-23] MEDS ORDERED: ALBUTEROL SULFATE HFA (90 MCG/PUFF) 8 GM MDI (1 MDI/ER DISP) IH ONE (01:51)
[2019-08-23 02:13] VITALS: BP 140/70
[2019-08-23 02:32] LABS: CHLAM PCR NOT DETECTED (NOT DETECT)
== END 2019-08-23 02:10 | disposition home or self-care (01) ==
LOC: ER 23:38
DX: N76.0 Acute vaginitis (principal); B96.89 Other specified bacterial agents as the cause of diseases classified elsewhere; N76.5 Ulceration of vagina; L29.2 Pruritus vulvae; J45.901 Unspecified asthma with (acute) exacerbation; F17.200 Nicotine dependence, unspecified, uncomplicated; B20 Human immunodeficiency virus [HIV] disease
CPT/HCPCS: 87210; 87250; 87491; 87591; J7512; J0696; J3490; J7620; 94640; 96374; 96375; 99284